=== PATIENT | female | born 1955 | race Caucasian/White ===

== ENCOUNTER 2016-10-10 13:24 | Outpatient (CLI) | payer MEDICAID | END 2016-10-10 13:25 | disposition home or self-care (01) | DX: E78.5 Hyperlipidemia, unspecified (principal); Z79.899 Other long term (current) drug therapy; E55.9 Vitamin D deficiency, unspecified ==

== ENCOUNTER 2017-04-23 13:47 | Outpatient (CLI) | payer MEDICAID ==
--- NOTE | 2017-04-24 13:21 | Mammography Report ---
DIGITAL SCREENING MAMMOGRAM: 04/23/2017 CLINICAL INDICATION: A 61-year-old with history of benign biopsy, for screening. COMPARISON: 04/2014, 12/2012, 12/2011, 10/2009. TECHNIQUE: Routine CC and MLO projections were obtained of the breasts. FINDINGS: The breasts again demonstrate scattered fibroglandular densities bilaterally. Postbiopsy c hanges in the right breast are stable, with coarse, typically benign calcifications. No suspicious ma sses, clustered microcalcifications, or regions of architectural distortion are identified. IMPRESSION: BENIGN FINDINGS. RECOMMENDATION: ROUTINE ANNUAL SCREENING UNLESS OTHERWISE CLINICALLY INDICATED. BIRADS CATEGORY 2-BENIGN FINDINGS. STANDARD QUALIFYING STATEMENTS 1. This examination was reviewed with the aid of Computer-Aided Detection (CAD). 2. A negative or benign imaging report should not delay biopsy if clinically suspicious findings are present. Consider surgical consultation if warranted. More than 5% of cancers are not identified by i maging. 3. Dense breasts may obscure an underlying neoplasm. JOB #: [id number] EXT JOB #:[id number]
== END 2017-04-23 13:48 | disposition home or self-care (01) ==
LOC: DI.N 13:47
PROVIDERS: ATTEND Nurse Practitioner Gerontology
DX: Z13.9 Encounter for screening, unspecified (principal)
CPT/HCPCS: 77067

== ENCOUNTER 2018-05-08 08:00 | Outpatient (CLI) | payer MEDICAID ==
[2018-05-08 18:49] LABS: BASOPHILS % (AUTO) 0.3 %; EOSINOPHILS % (AUTO) 0.3 %; HGB - HEMOGLOBIN 12.5 g/dL (12.0-16.0); LYMPHOCYTES # (AUTO) 1.7 10^3/uL (1.5-3.5); LYMPHOCYTES % (AUTO) 17.5 %; MEAN CORPUSCULAR HEMOGLOBIN 30.3 pg (27.0-31.0); MEAN CORPUSCULAR HGB CONC 33.3 g/dL (32.0-36.0); MEAN CORPUSCULAR VOLUME 90.8 fL (81.0-99.0); MONOCYTES # (AUTO) 0.6 10^3/uL (0.0-1.0); MONOCYTES % (AUTO) 5.6 %; NEUTROPHILS # (AUTO) 7.6 10^3/uL (1.5-6.6); NEUTROPHILS % (AUTO) 76.3 %; PLT - PLATELET COUNT 200 10^3/uL (130-450); RED BLOOD COUNT 4.12 10^6/uL (4.20-5.40); RED CELL DISTRIBUTION WIDTH 14.8 % (12.0-15.0)
[2018-05-08 19:14] LABS: ALBUMIN 4.2 g/dL (3.2-5.5); ALBUMIN/GLOBULIN RATIO 1.3 (1.0-2.2); ALKALINE PHOSPHATASE 73 IU/L (42-121); ALT ALANINE AMINOTRANSFERASE 17 IU/L (10-60); AST ASPARTATE AMINOTRANSFERASE 20 IU/L (10-42); BILIRUBIN,TOTAL 0.8 mg/dL (0.2-1.0); BUN - BLOOD UREA NITROGEN 14 mg/dL (6-20); CALCIUM 9.1 mg/dL (8.5-10.3); CARBON DIOXIDE - CO2 25 mmol/L (21-32); CHLORIDE 108 mmol/L (101-111); CHOL/HDL RATIO 2.8 (<4.4); CHOLESTEROL 140 mg/dL; CREATININE 0.5 mg/dL (0.4-1.0); GFR - MDRD 126 (>89); GLUCOSE 88 mg/dL (70-100); HDL CHOLESTEROL 50 mg/dL; LDL CHOLESTEROL,CALCULATED 74 mg/dL; LDL/HDL RATIO 1.5 (<4.4); SODIUM 141 mmol/L (135-145); TOTAL PROTEIN 7.4 g/dL (6.7-8.2); VLDL CHOLESTEROL 16 mg/dL
== END 2018-05-08 08:01 | disposition home or self-care (01) ==
LOC: LAB.N 08:00
PROVIDERS: ATTEND Nurse Practitioner Gerontology
DX: Z79.899 Other long term (current) drug therapy (principal)
CPT/HCPCS: 36415; 80053; 80061; 83721; 85025

== ENCOUNTER 2018-05-08 13:09 | Emergency (ER) | payer MEDICAID ==
--- NOTE | 2018-05-08 15:05 | XRAY Report ---
Reason: Trauma Procedure Date: 05/08/2018 Accession Number: [id number] / [id number] Procedure: XR - Forearm LT CPT Code: FULL RESULT: EXAM: LEFT FOREARM AND ELBOW RADIOGRAPHY EXAM DATE: 05/08/2018 02:48 PM. CLINICAL HISTORY: Left forearm pain. COMPARISON: ELBOW 3 VIEW BILAT 05/08/2018 1:48 PM. TECHNIQUE: 2 views left forearm and 3 views left elbow. FINDINGS: Bones: There is minimally displaced comminuted intra-articular fracture involving the radial head. The remainder osseous structures are intact. Joints: Normal. No effusions or subluxations in the visualized wrist or elbow joints. Soft Tissues: Normal. No soft tissue swelling. IMPRESSION: Comminuted minimally displaced intra-articular fracture involving the radial head. RADIA
--- NOTE | 2018-05-08 15:05 | XRAY Report ---
Reason: LEFT ELBOW PAIN, FALL Procedure Date: 05/08/2018 Accession Number: [id number] / [id number] Procedure: XR - Elbow 3 View LT CPT Code: FULL RESULT: EXAM: LEFT FOREARM AND ELBOW RADIOGRAPHY EXAM DATE: 05/08/2018 02:48 PM. CLINICAL HISTORY: Left forearm pain. COMPARISON: ELBOW 3 VIEW BILAT 05/08/2018 1:48 PM. TECHNIQUE: 2 views left forearm and 3 views left elbow. FINDINGS: Bones: There is minimally displaced comminuted intra-articular fracture involving the radial head. The remainder osseous structures are intact. Joints: Normal. No effusions or subluxations in the visualized wrist or elbow joints. Soft Tissues: Normal. No soft tissue swelling. IMPRESSION: Comminuted minimally displaced intra-articular fracture involving the radial head. RADIA
--- NOTE | 2018-05-08 15:06 | XRAY Report ---
Reason: Trauma Procedure Date: 05/08/2018 Accession Number: [id number] / [id number] Procedure: XR - Wrist 4 View LT CPT Code: FULL RESULT: EXAM: LEFT WRIST RADIOGRAPHY EXAM DATE: 05/08/2018 02:48 PM. CLINICAL HISTORY: Trauma. COMPARISON: XR WRIST COMPLETE 3 VIEWS 09/03/2010 4:29 PM. TECHNIQUE: 3 views. FINDINGS: Bones: Bones are osteopenic. No fractures or bone lesions. Joints: Normal. No subluxations. Soft Tissues: Normal. No soft tissue swelling. IMPRESSION: No acute findings. RADIA
[2018-05-08] MEDS ORDERED: HYDROcod/ACETAM 5/325 MG TABLET PO STA (15:36)
--- NOTE | 2018-05-08 15:51 | ED Physician Documentation ---
PD HPI UPPER EXT INJURY - Stated complaint Stated Complaint: GLF/ARM INJURY - Chief complaint Chief Complaint: Ext Problem - History obtained from History obtained from: Patient, Friend - History of Present Illness Location: Left, Arm, Elbow, Forearm Type of injury: Fall, Blunt / blow Where injury occurred: Home Timing - onset: Today Severity Comments: moderate Improved by: Immobilization Worsened by: Moving Associated symptoms: No: Weakness, Numbness, Tingling, Swelling Similar symptoms before: Has not had sx before Recently seen: Not recently seen - Additonal information Additional information: 62-year-old female fell striking her left elbow. No injury to her head, neck, torso or lower extremities. Review of Systems Constitutional: denies: Fever, Chills Ears: denies: Ear pain Nose: denies: Congestion Throat: denies: Sore throat Cardiac: denies: Chest pain / pressure GI: denies: Abdominal Pain Skin: denies: Laceration (s) Musculoskeletal: reports: Extremity pain. 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 11/04/14 Ondansetron HCl [Zofran] 4 mg PO Q6H PRN #20 tablet 11/04/14 Oxycodone HCl/Acetaminophen 1 - 2 each PO Q6H PRN #30 tablet 11/04/14 [Percocet 5-325 mg Tablet] Tamsulosin [Flomax] 0.4 mg PO DAILY #14 capsule 11/04/14 HYDROcod/ACETAM 5/325 [[employer] 5/325] 1 each PO Q6H PRN #15 tablet 05/08/18 - Allergies Allergies/Adverse Reactions: Allergies Allergy/AdvReac Type Severity Reaction Status Date / Time Penicillins Allergy Intermediate Edema Verified 02/10/14 20:04 - Social History Does the pt smoke?: No Smoking Status: Never smoker Does the pt drink ETOH?: No Does the pt have substance abuse?: No - Immunizations Immunizations are current?: Yes - POLST Patient has POLST: Yes PD ED PE NORMAL - General General: Alert and oriented X 3 - HEENT HEENT: Atraumatic, PERRL, EOMI - Neck Neck: No bony TTP - Cardiac Cardiac: Other (No chest wall tenderness) - Abdomen Abdomen: Non tender - Back Back: No spinal TTP - Extremities Extremities: Other (The patient has tenderness to palpation of the left elbow, forearm and wrist. The patient has no tenderness in the shoulder or hand. The patient has normal sensation light touch and normal radial pulse. There is no obvious deformity or significant ecchymosis or laceration. The patient has no tenderness in her right upper extremity or lower extremities.). No: No tenderness to palpate - Neuro Neuro: Alert and oriented X 3, Normal speech - Psych Psych: Normal affect Results - Vitals Vitals: Vital Signs - 24 hr 05/08/18 13:13 Temperature 36.8 C Heart Rate 74 Respiratory 18 Rate Blood Pressure 149/76 H O2 Saturation 100 Oxygen O2 Source Room air - Rads (name of study) XR elbow/forearm/wrist Radiology: Final report received (IMPRESSION: Comminuted minimally displaced intra-articular fracture involving the radial head. ) Procedures - Splint (location) Upper extremity left Splint applied by: Tech Type of splint: Posterior Other: Patient tolerated well, Neurovascular intact PD MEDICAL DECISION MAKING - ED course ED course: The case was discussed with the on-call orthopedic surgeon who reviewed the images and agrees with the plan for a posterior splint and agrees to follow the patient up in clinic for definitive management. The findings and plan were discussed the patient who understands and agrees to the plan.I discussed warning signs and recommended returning to the emergency department immediately for worsening or any concerns. - Sepsis Event Vital Signs: Vital Signs - 24 hr 05/08/18 13:13 Temperature 36.8 C Heart Rate 74 Respiratory 18 Rate Blood Pressure 149/76 H O2 Saturation 100 Oxygen O2 Source Room air Departure - Departure Disposition: 01 Home, Self Care Clinical Impression: Radial head fracture Qualifiers: Encounter type: initial encounter Fracture type: closed Fracture alignment: displaced Laterality: unspecified laterality Qualified Code(s): S52.123A - Displaced fracture of head of unspecified radius, initial encounter for closed fracture Condition: Good Instructions: ED Fx Upper Extr Ch Follow-Up: Beny Alfaro MD [Provider Admit Priv/Credential] - (Call tomorrow to schedule a follow-up appointment) Prescriptions: HYDROcod/ACETAM 5/325 [[employer] 5/325] 1 each PO Q6H PRN #15 tablet PRN Reason: Pain Comments: Please return to the emergency department immediately for worsening symptoms or any concerns
[2018-05-08 16:38] VITALS: BP 145/85
== END 2018-05-08 16:30 | disposition home or self-care (01) ==
LOC: ED 13:09
DX: S52.122A Displaced fracture of head of left radius, initial encounter for closed fracture (principal); W19.XXXA Unspecified fall, initial encounter; I10 Essential (primary) hypertension; Z79.899 Other long term (current) drug therapy
CPT/HCPCS: 29105; 36415; 73080; 73090; 73110; 80053; 80061; 85025; 99283; A9270

== ENCOUNTER 2018-06-13 18:09 | Outpatient (CLI) | payer MEDICAID | END 2018-06-13 18:10 | disposition critical access hospital (66) | LOC: EMS 18:09 | PROVIDERS: ATTEND Surgery | DX: K08.89 Other specified disorders of teeth and supporting structures (principal); R03.0 Elevated blood-pressure reading, without diagnosis of hypertension | CPT/HCPCS: A0425; A0429; A0999 ==

== ENCOUNTER 2018-06-13 18:33 | Emergency (ER) | payer MEDICAID ==
[2018-06-13 18:41] VITALS: BP 191/90
[2018-06-13] MEDS ORDERED: CLINDAMYCIN 150 MG CAPSULE PO STA (18:41)
[2018-06-13] MEDS ORDERED: HYDROcod/ACETAM 5/325 MG TABLET PO STA (18:41)
--- NOTE | 2018-06-13 18:44 | ED Physician Documentation ---
History of Present Illness - Stated complaint Stated Complaint: TOOTHACHE - Chief complaint Chief Complaint: Heent - History obtained from History obtained from: Patient - History of Present Illness Timing: How many weeks ago (1) Pain level max: 8 Pain level now: 8 Improved by: nothing Worsened by: eating, chewing - Additonal information Additional information: R upper tooth pain x 1 week. No fevers. no trismus. No facial swelling or redness. 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 11/04/14 Ondansetron HCl [Zofran] 4 mg PO Q6H PRN #20 tablet 11/04/14 Oxycodone HCl/Acetaminophen 1 - 2 each PO Q6H PRN #30 tablet 11/04/14 [Percocet 5-325 mg Tablet] Tamsulosin [Flomax] 0.4 mg PO DAILY #14 capsule 11/04/14 HYDROcod/ACETAM 5/325 [[place] 5/325] 1 each PO Q6H PRN #15 tablet 05/08/18 Clindamycin HCl [Clindamycin 300MG 300 mg PO Q6H #28 capsule 06/13/18 CAP] Hydrocodone/Acetaminophen 1 each PO Q6H PRN #7 tablet 06/13/18 [Hydrocodon-Acetaminophen 5-325] - Allergies Allergies/Adverse Reactions: Allergies Allergy/AdvReac Type Severity Reaction Status Date / Time Penicillins Allergy Intermediate Edema Verified 02/10/14 20:04 - Social History Does the pt smoke?: No Smoking Status: Never smoker Does the pt drink ETOH?: No Does the pt have substance abuse?: No - Immunizations Immunizations are current?: Yes - POLST Patient has POLST: No PD ED PE NORMAL - Vitals Vital signs reviewed: Yes - General General: Alert and oriented X 3, No acute distress - HEENT HEENT: Moist mucous membranes, Other (Diffuse dental decay along the right upper mandible. No drainable abscess. No gingival swelling. No facial cellulitis) - Neck Neck: Supple, no meningeal sign, No adenopathy - Cardiac Cardiac: RRR - Respiratory Respiratory: No respiratory distress, Clear bilaterally - Derm Derm: Warm and dry - Neuro Neuro: Alert and oriented X 3 Results - Vitals Vitals: Vital Signs - 24 hr 06/13/18 18:35 Temperature 36.5 C Heart Rate 71 Respiratory 18 Rate Blood Pressure 191/90 H O2 Saturation 100 Oxygen O2 Source Room air PD MEDICAL DECISION MAKING - ED course Complexity details: considered differential, d/w patient ED course: Patient is a 62-year-old female with dental caries and dental pain. Will place on antibiotics for home and follow-up closely with a dentist on Saturday. She is well-appearing, nontoxic. Afebrile. No facial cellulitis. No drainable abscess. Patient counseled regarding signs and symptoms for which I believe and urgent re-evaluation would be necessary. Patient with good understanding of and agreement to plan and is comfortable going home at this time This document was made in part using voice recognition software. While efforts are made to proofread this document, sound alike and grammatical errors may occur. Departure - Departure Disposition: 01 Home, Self Care Clinical Impression: Pain, dental, Dental caries Condition: Good Instructions: ED Cavity Dental Prescriptions: Clindamycin HCl [Clindamycin 300MG CAP] 300 mg PO Q6H #28 capsule Hydrocodone/Acetaminophen [Hydrocodon-Acetaminophen 5-325] 1 each PO Q6H PRN #7 tablet PRN Reason: pain Comments: Take all antibiotics until gone. Return if you worsen. You need to follow-up with the dentist as soon as possible next week. Do not drink alcohol or drive while on narcotic pain medicine. Note that many narcotic pain relievers also contain tylenol/acetaminophen. Please ensure that your total dose of acetaminophen from all sources does not exceed 3 grams (3000mg) per day. You may constipated on this medication, take a stool softener such as "Colace" twice a day while you are on it. Also recommend a adta-upy-wqbdsqr laxative such as senna or MiraLAX any day that you do not have a bowel movement. If you received narcotic pain medication in the emergency department, do not drive or operate machinery for the next 24 hours.
== END 2018-06-13 18:55 | disposition home or self-care (01) ==
LOC: EDUNIT# → ED 18:33
DX: K08.89 Other specified disorders of teeth and supporting structures (principal); K02.9 Dental caries, unspecified; I10 Essential (primary) hypertension
CPT/HCPCS: 99283; A9270

== ENCOUNTER 2019-01-27 08:55 | Outpatient (CLI) | payer MEDICAID ==
--- NOTE | 2019-01-27 09:55 | XRAY Report ---
Reason: WRIST JOINT PAIN,LEFT Procedure Date: 01/27/2019 Accession Number: [id number] / [id number] Procedure: XRN - Wrist 4 View LT CPT Code: FULL RESULT: EXAM: LEFT WRIST RADIOGRAPHY EXAM DATE: 01/27/2019 09:34 AM. CLINICAL HISTORY: WRIST JOINT PAIN, LEFT. COMPARISON: ELBOW 3 VIEW LT 07/17/2018 1:47 PM. TECHNIQUE: 3 views. FINDINGS: Bones: There is an acute comminuted transverse fracture at the metaphyseal-diaphyseal junction of the distal left ulnar shaft. There is no significant displacement. No other findings. Joints: Normal. No subluxations. Soft Tissues: Normal. No soft tissue swelling. IMPRESSION: Acute comminuted transverse fracture of the distal left ulnar shaft as described above. RADIA
== END 2019-01-27 08:56 | disposition home or self-care (01) ==
LOC: DI.N 08:55
PROVIDERS: ATTEND Nurse Practitioner Gerontology
DX: S52.692A Other fracture of lower end of left ulna, initial encounter for closed fracture (principal)

== ENCOUNTER 2019-03-11 10:59 | Outpatient (CLI) | payer MEDICAID ==
--- NOTE | 2019-03-12 09:00 | DEXA Report ---
Reason: OSTEOPOROSIS Procedure Date: 03/11/2019 Accession Number: [id number] / [id number] Procedure: DEX - Dexa Spine and/or Hip CPT Code: FULL RESULT: EXAM: Dexa Spine and/or Hip DATE: 03/11/2019 11:54 AM CLINICAL HISTORY: OSTEOPOROSIS TECHNIQUE: Dual energy x-ray absorptiometry (DXA) was performed on a [employer] System. Regions measured are the AP Spine, femoral neck, and if needed forearm. COMPARISON: None. In accordance with the International Society for Clinical Densitometry (ISCD) guidelines, data from previous exams may be reanalyzed using current recommendations and techniques. This is done to allow a more accurate basis for comparison with the current study. FINDINGS: The data for the lumbar spine is as follows: BMD (g/cm/cm) T-SCORE Z-SCORE REGION L1 0.926 -1.7 -0.5 L2 0.941 -2.2 -1.0 L3 1.045 -1.3 -0.1 L4 0.993 -1.7 -0.5 TOTAL 0.979 -1.7 -0.5 NOTE: All evaluable vertebrae are used for classification The data for the hip is as follows: BMD (g/cm/cm) T-SCORE Z-SCORE REGION Neck 0.762 -2.0 -0.8 TOTAL 0.800 -1.6 -0.7 NOTE: The femoral neck or total proximal femur, whichever is lowest, is used for classification. IMPRESSION: THE WHO CLASSIFICATION BASED ON THE INTERNATIONAL REFERENCE STANDARD IS OSTEOPENIA. THE FRACTURE RISK IS INCREASED. RECOMMENDATION: Patients with diagnosis of osteoporosis or osteopenia should have regular bone mineral density assessment. For those eligible for Medicare, routine testing is allowed once every 2 years. Testing frequency can be increased for patients who have rapidly progressing disease or for those who are receiving medical therapy to restore bone mass. COMMENT: World Health Organization (WHO) definitions for osteoporosis and osteopenia: NORMAL BMD: T-score at -1.0 or higher, fracture risk is low OSTEOPENIA BMD: T-score between -1.0 and -2.5, fracture risk is increased. OSTEOPOROSIS BMD: T-score at -2.5 or lower, fracture risk is high. National Osteoporosis Foundation recommends: 1. Obtain adequate dietary calcium (at least 1200 mg per day) and vitamin D (400-800 international units per day). 2. Participate, as appropriate, in regular weightbearing and muscle-strengthening exercise. 3. Avoid tobacco use and reduce alcohol and caffeine intake. 4. For more detailed information see the website at www.NOF.org.
== END 2019-03-11 11:00 | disposition home or self-care (01) ==
LOC: DI 10:59
PROVIDERS: ATTEND Nurse Practitioner Gerontology
DX: M85.89 Other specified disorders of bone density and structure, multiple sites (principal)
CPT/HCPCS: 77080

== ENCOUNTER 2019-04-05 11:50 | Emergency (ER) | payer MEDICAID ==
[2019-04-05 12:23] LABS: BASOPHILS % (AUTO) 0.3 %; EOSINOPHILS % (AUTO) 0.3 %; HGB - HEMOGLOBIN 13.3 g/dL (12.0-16.0); LYMPHOCYTES % (AUTO) 18.5 %; MEAN CORPUSCULAR HEMOGLOBIN 29.9 pg (27.0-31.0); MEAN CORPUSCULAR HGB CONC 33.3 g/dL (32.0-36.0); MEAN CORPUSCULAR VOLUME 89.7 fL (81.0-99.0); MEAN PLATELET VOLUME 10.1 fL (7.9-10.8); MONOCYTES # (AUTO) 0.4 10^3/uL (0.0-1.0); NEUTROPHILS # (AUTO) 8.1 10^3/uL (1.5-6.6); NEUTROPHILS % (AUTO) 76.5 %; PLT - PLATELET COUNT 247 10^3/uL (130-450); RED BLOOD COUNT 4.45 10^6/uL (4.20-5.40); WHITE BLOOD COUNT 10.6 x10^3/uL (4.8-10.8)
[2019-04-05 12:36] LABS: ALBUMIN 4.2 g/dL (3.2-5.5); ALBUMIN/GLOBULIN RATIO 1.2 (1.0-2.2); BILIRUBIN,TOTAL 0.8 mg/dL (0.2-1.0); CALCIUM 9.3 mg/dL (8.5-10.3); CREATININE 0.5 mg/dL (0.4-1.0); TOTAL PROTEIN 7.7 g/dL (6.7-8.2)
--- NOTE | 2019-04-05 12:37 | ED Physician Documentation ---
PD HPI NVD - Stated complaint Stated Complaint: VOMITING - Chief complaint Chief Complaint: Abd Pain - History obtained from History obtained from: Patient - History of Present Illness Timing - onset: How many days ago (3) Timing - duration: Days (3) Timing - details: Gradual onset (She had onset of nausea with repetitive vomiting starting 3 days ago. She had one bowel movement yesterday that was normal. No diarrhea. She has not noticed any hematemesis. She has had a feeling a bit abdominal fullness with intermittent crampy pains. No persistent localized pain. She states she had similar episode with a gallbladder attack in the past. She does have history of an ulcer as well.) Associated symptoms: Abdominal pain (She is having intermittent pain in the right to mid abdomen.). No: Fever Contributing factors: No: Sick contact, Bad food, Travel, Recent antibiotics Improved by: No: Vomiting Worsened by: Eating Similar symptoms before: Diagnosis (gallbladder spasm without infection) Recently seen: Not recently seen Review of Systems Constitutional: denies: Fever, Chills Nose: denies: Rhinorrhea / runny nose, Congestion Throat: denies: Sore throat Respiratory: denies: Cough GI: reports: Abdominal Pain, Nausea, Vomiting. denies: Diarrhea, Hematemesis, Bloody / black stool : denies: Dysuria, Frequency Musculoskeletal: denies: Neck pain, Back pain Neurologic: denies: Headache Endocrine: denies: Weight loss, Easy bruising / bleeding Immunocompromised: denies: Immunocompromised PD PAST MEDICAL HISTORY - Past Medical History Past Medical History: Yes Cardiovascular: Hypertension Respiratory: None Endocrine/Autoimmune: None GI: GERD : Kidney stones HEENT: None Psych: Depression Musculoskeletal: Osteoarthritis, Chronic back pain Derm: None - Past Surgical History Past Surgical History: Yes Ortho: Rotator cuff repair, 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 11/04/14 Ondansetron HCl [Zofran] 4 mg PO Q6H PRN #20 tablet 11/04/14 Oxycodone HCl/Acetaminophen 1 - 2 each PO Q6H PRN #30 tablet 11/04/14 [Percocet 5-325 mg Tablet] Tamsulosin [Flomax] 0.4 mg PO DAILY #14 capsule 11/04/14 HYDROcod/ACETAM 5/325 [[place] 5/325] 1 each PO Q6H PRN #15 tablet 05/08/18 Hydrocodone/Acetaminophen 1 each PO Q6H PRN #7 tablet 06/13/18 [Hydrocodon-Acetaminophen 5-325] Famotidine 20 mg PO DAILY #30 tablet 04/05/19 Hydrocodone/Acetaminophen [[place] 1 each PO Q6H PRN #12 tablet 04/05/19 5-325 Tablet] Ondansetron Odt [Zofran] 4 mg TL Q6H PRN #10 tablet 04/05/19 - Allergies Allergies/Adverse Reactions: Allergies Allergy/AdvReac Type Severity Reaction Status Date / Time Penicillins Allergy Intermediate Edema Verified 06/13/18 18:53 - Social History Does the pt smoke?: No Smoking Status: Never smoker Does the pt drink ETOH?: No Does the pt have substance abuse?: No - Immunizations Immunizations are current?: Yes - POLST Patient has POLST: No PD ED PE NORMAL - Vitals Vital signs reviewed: Yes - General General: Alert and oriented X 3, Well developed/nourished, Other (Appears uncomfortable and nauseated and holding an emesis bag.) - HEENT HEENT: PERRL (nonicteric), Pharynx benign - Neck Neck: Supple, no meningeal sign, No adenopathy - Cardiac Cardiac: RRR, No murmur - Respiratory Respiratory: Clear bilaterally - Abdomen Abdomen: Soft, No organomegaly, Other (There is mild distention generally. She is tender in the mid abdomen and towards the right side both upper and mid. She does not have a Escobar sign per se. There is some mild percussion tenderness generally.). No: Normal bowel sounds (increased diffusely) - Female Female : Deferred - Rectal Rectal: Deferred - Derm Derm: Normal color, Warm and dry - Extremities Extremities: No edema, No calf tenderness / cord - Neuro Neuro: Alert and oriented X 3, No motor deficit, Normal speech Results - Vitals Vitals: Vital Signs - 24 hr 04/05/19 12:04 Temperature 36.8 C Heart Rate 85 Respiratory 18 Rate Blood Pressure 144/85 H O2 Saturation 99 Oxygen O2 Source Room air - Labs Labs: Laboratory Tests 04/05/19 04/05/19 04/05/19 12:20 12:20 13:06 WBC 10.6 RBC 4.45 Hgb 13.3 Hct 39.9 MCV 89.7 MCH 29.9 MCHC 33.3 RDW 14.0 Plt Count 247 MPV 10.1 Neut # (Auto) 8.1 H Lymph # (Auto) 2.0 [place] # (Auto) 0.4 Eos # (Auto) 0.0 Baso # (Auto) 0.0 Absolute Nucleated RBC 0.00 Nucleated RBC % 0.0 Sodium 140 Potassium 3.2 L Chloride 107 Carbon Dioxide 19 L Anion Gap 14.0 H BUN 13 Creatinine 0.5 Estimated GFR (MDRD) 125 Glucose 155 H Calcium 9.3 Total Bilirubin 0.8 AST 21 ALT 19 Alkaline Phosphatase 76 Total Protein 7.7 Albumin 4.2 Globulin 3.5 Albumin/Globulin Ratio 1.2 Lipase 29 Urine Color YELLOW Urine Clarity CLEAR Urine pH 7.5 Ur Specific [place] 1.015 Urine Protein NEGATIVE Urine Glucose (UA) NEGATIVE Urine Ketones NEGATIVE Urine Occult Blood TRACE-INTA Urine Nitrite NEGATIVE Urine Bilirubin NEGATIVE Urine Urobilinogen 0.2 (NORMAL) Ur Leukocyte Esterase NEGATIVE Ur Microscopic Review NOT INDICATED Urine Culture Comments NOT INDICATED - Rads (name of study) abd CT Radiology: Prelim report reviewed (gallstones without cholecystitis, diverticula without diverticulitis. No acute process. ), See rad report PD MEDICAL DECISION MAKING - ED course Complexity details: re-evaluated patient (Feeling much better with fluids and antiemetics. She is able to eat and drink crackers and water at this point. She feels able to go home.), considered differential (Gallbladder attack versus viral illness versus exacerbation of ulcer or gastritis. Consider diverticulitis or such as well or bowel obstruction.), d/w patient Departure - Departure Disposition: 01 Home, Self Care Clinical Impression: Dehydration, Gallbladder attack Nausea and vomiting Qualifiers: Vomiting type: unspecified Vomiting Intractability: intractable Qualified Code(s): R11.2 - Nausea with vomiting, unspecified Gastritis Qualifiers: Gastritis type: unspecified gastritis Chronicity: acute Gastritis bleeding: without bleeding Qualified Code(s): K29.00 - Acute gastritis without bleeding Condition: Stable Record reviewed to determine appropriate education?: Yes Instructions: ED Nausea Vomiting Follow-Up: Terese Nolen ARNP [Primary Care Provider] - Prescriptions: Famotidine 20 mg PO DAILY #30 tablet Hydrocodone/Acetaminophen [[place] 5-325 Tablet] 1 each PO Q6H PRN #12 tablet PRN Reason: Pain Ondansetron Odt [Zofran] 4 mg TL Q6H PRN #10 tablet PRN Reason: Nausea / Vomiting Comments: This may have been a "gallbladder attack" with spasming of the gallbladder. There is no signs of infection to it at this point. You could also have been a exacerbation of gastritis or ulcer symptoms. Could be a combination of both. At this point I would have you take some acid reducing medicine such as famotidine daily for 2 to 3 weeks. Use ondansetron if needed for nausea. Use Tylenol or hydrocodone if needed for pains. [place] food for the next few days. Progress as able. Stay well-hydrated. Recheck if not improved completely over the next few days and return if worse again.
[2019-04-05] MEDS ORDERED: ONDANSETRON 4 MG/2 ML VIAL IVP STA (12:50)
[2019-04-05] MEDS ORDERED: SODIUM CHLORIDE 0.9% 1,000 ML IV ONE ×2 (12:50→12:54)
[2019-04-05] MEDS ORDERED: FAMOTIDINE 20 MG/2 ML VIAL IVP STA (12:53)
[2019-04-05] MEDS ORDERED: MORPHINE 10 MG/ML VIAL IVP STA (12:53)
[2019-04-05 13:15] LABS: BILIRUBIN,URINE NEGATIVE (NEGATIVE); GLUCOSE, URINE (UA) NEGATIVE (NEGATIVE); KETONES,URINE (UA) NEGATIVE (NEGATIVE); LEUKOCYTE ESTERASE, URINE NEGATIVE (NEGATIVE); NITRITE,URINE NEGATIVE (NEGATIVE); OCCULT BLOOD,URINE TRACE-INTA (NEGATIVE); PH,URINE 7.5 PH (5.0-7.5); PROTEIN,URINE NEGATIVE (NEGATIVE); UROBILINOGEN,URINE 0.2 (NORMAL) E.U./dL (NORMAL)
[2019-04-05 13:18] LABS: CLARITY,URINE CLEAR (CLEAR)
[2019-04-05] MEDS ORDERED: IOVERSOL 320 100 ML VIAL IVP ONE ×2 (13:33→13:42)
[2019-04-05] MEDS ORDERED: POTASSIUM CHLOR 10 MEQ/100 ML 10 MEQ/100 ML BAG IV ONE (13:39)
--- NOTE | 2019-04-05 14:08 | CT Report ---
Reason: abd pain and vomiting 3 days; mid to right abd natasha Procedure Date: 04/05/2019 Accession Number: [id number] / [id number] Procedure: CT - Abdomen/Pelvis W CPT Code: FULL RESULT: EXAM: CT ABDOMEN AND PELVIS EXAM DATE: 04/05/2019 01:43 PM. CLINICAL HISTORY: Abdominal pain and vomiting. COMPARISONS: ABDOMEN/PELVIS W/O 11/02/2014 6:40 AM. TECHNIQUE: Routine helical CT imaging was performed through the abdomen and pelvis. IV contrast: 90 mL Optiray 320. Enteric contrast: No. Reconstructions: Coronal and sagittal. In accordance with CT protocol optimization, one or more of the following dose reduction techniques were utilized for this exam: automated exposure control, adjustment of mA and/or KV based on patient size, or use of iterative reconstructive technique. FINDINGS: Lung Bases: Unremarkable. Liver: Probable fatty change. No masses. Gallbladder/Bile Ducts: Calcified gallstones present. No biliary dilation. Spleen: Normal. Pancreas: Normal. Adrenal Glands: Normal. Kidneys: Normal. No masses or hydronephrosis. Peritoneal Cavity/Bowel: There is minimal predominantly sigmoid diverticulosis without evidence of diverticulitis. There is no obstruction or ileus. No free fluid or free air. The appendix is not visualized, however, no inflammatory changes are seen in the right lower quadrant region. Pelvic Organs: Uterine calcification related to degenerative fibroid is again seen. The bladder and visualized pelvic organs are otherwise within normal limits. Vasculature: No aneurysms or other significant abnormality. Bones: Age indeterminant 2 column burst fracture is seen at T12 with 4 mm retropulsion of the superior endplate causing mild spinal canal stenosis at the T11-T12 level. Other: None. IMPRESSION: 1. No acute intra-abdominal abnormality demonstrated. No obstruction or ileus. 2. Cholelithiasis. No biliary dilation. 3. Minor colonic diverticulosis without diverticulitis. 4. Age indeterminant 2 column burst fracture at T12 causing mild retropulsion and spinal canal stenosis. Finding is new compared with 11/02/2014 CT. RADIA
[2019-04-05 15:51] VITALS: BP 133/80
== END 2019-04-05 15:53 | disposition home or self-care (01) ==
LOC: ED 11:50
DX: E86.0 Dehydration (principal); K80.00 Calculus of gallbladder with acute cholecystitis without obstruction; K29.00 Acute gastritis without bleeding; I10 Essential (primary) hypertension
CPT/HCPCS: 36415; 74177; 80053; 81003; 83690; 85025; 93005; 96365; 96375; 99284; 99285; Q9967; 81001; 87086

== ENCOUNTER 2019-04-30 10:42 | Outpatient (CLI) | payer MEDICAID ==
[2019-04-30 12:27] LABS: BASOPHILS % (AUTO) 0.5 %; EOSINOPHILS # (AUTO) 0.2 10^3/uL (0.0-0.7); EOSINOPHILS % (AUTO) 2.2 %; LYMPHOCYTES % (AUTO) 23.6 %; MEAN CORPUSCULAR HEMOGLOBIN 29.1 pg (27.0-31.0); MEAN CORPUSCULAR HGB CONC 31.9 g/dL (32.0-36.0); MEAN CORPUSCULAR VOLUME 91.3 fL (81.0-99.0); MEAN PLATELET VOLUME 10.4 fL (7.9-10.8); MONOCYTES # (AUTO) 0.5 10^3/uL (0.0-1.0); MONOCYTES % (AUTO) 5.4 %; NEUTROPHILS # (AUTO) 5.7 10^3/uL (1.5-6.6); NEUTROPHILS % (AUTO) 67.9 %; PLT - PLATELET COUNT 211 10^3/uL (130-450); RED BLOOD COUNT 4.12 10^6/uL (4.20-5.40); RED CELL DISTRIBUTION WIDTH 14.4 % (12.0-15.0); WHITE BLOOD COUNT 8.4 x10^3/uL (4.8-10.8)
[2019-04-30 12:40] LABS: ALBUMIN 4.1 g/dL (3.2-5.5); ALBUMIN/GLOBULIN RATIO 1.4 (1.0-2.2); BILIRUBIN,TOTAL 0.9 mg/dL (0.2-1.0); CALCIUM 9.1 mg/dL (8.5-10.3); CREATININE 0.5 mg/dL (0.4-1.0); TOTAL PROTEIN 7.1 g/dL (6.7-8.2)
== END 2019-04-30 23:59 | disposition home or self-care (01) ==
LOC: LAB.N 10:42
PROVIDERS: ATTEND Nurse Practitioner Gerontology
DX: Z79.899 Other long term (current) drug therapy (principal); E78.5 Hyperlipidemia, unspecified
CPT/HCPCS: 36415; 80053; 84443; 85025

== ENCOUNTER 2020-01-01 15:41 | Outpatient (CLI) | payer MEDICAID ==
--- NOTE | 2020-01-02 18:45 | XRAY Report ---
Reason: LEFT HIP PAIN Procedure Date: 01/01/2020 Accession Number: [id number] / [id number] Procedure: WCP - Hip 1 View LT CPT Code: Final Report FULL RESULT: EXAM: LEFT HIP RADIOGRAPHY EXAM DATE: 01/01/2020 03:41 PM. CLINICAL HISTORY: LEFT HIP PAIN. COMPARISON: 11/09/2015 11:16 AM. TECHNIQUE: 2 views. FINDINGS: Bones: Normal. No fractures or bone lesion. Joints: Moderate degenerative changes are seen at bilateral hip joints with periarticular sclerosis and loss of joint space. No acute osseous or articular abnormality. Soft Tissues: Calcified soft tissue in the pelvic region is most consistent with a fibroid. IMPRESSION: Moderate degenerative changes of bilateral hip joints. No acute osseous or articular abnormality. RAD[facility]
== END 2020-01-01 23:59 | disposition home or self-care (01) ==
LOC: DI.WCP 15:41
PROVIDERS: ATTEND Family Medicine
DX: M16.0 Bilateral primary osteoarthritis of hip (principal)

== ENCOUNTER 2020-01-07 12:07 | Outpatient (CLI) | payer MEDICAID ==
--- NOTE | 2020-01-08 00:26 | XRAY Report ---
Reason: BACK PAIN,LUMBAR WITH RADICULOPATHY Procedure Date: 01/07/2020 Accession Number: [id number] Procedure: XR - Lumbar Spine Complete CPT Code: Final Report FULL RESULT: EXAM: LUMBOSACRAL SPINE RADIOGRAPHY EXAM DATE: 01/07/2020 12:33 PM. CLINICAL HISTORY: BACK PAIN, LUMBAR WITH RADICULOPATHY. COMPARISONS: None. TECHNIQUE: 4 views. FINDINGS: Alignment: Dextroscoliosis. Bones: Five pww-frq-chxxipt lumbar vertebral bodies are present. No fractures or bone lesions. Disks: Moderate degenerative disk disease. Facets: Moderate facet arthropathy. Sacroiliac Joints: Unremarkable. Soft Tissues: Normal. The visualized bowel gas pattern is normal. IMPRESSION: Degenerative disk and facet disease, with degenerative dextroscoliosis. No evidence of acute fracture. [facility]
== END 2020-01-07 12:08 | disposition home or self-care (01) ==
LOC: DI 12:07
PROVIDERS: ATTEND Family Medicine
DX: M51.36 Other intervertebral disc degeneration, lumbar region (principal); M47.816 Spondylosis without myelopathy or radiculopathy, lumbar region; M41.56 Other secondary scoliosis, lumbar region
CPT/HCPCS: 72110

== ENCOUNTER 2020-04-20 11:58 | Outpatient (CLI) | payer MEDICAID ==
--- NOTE | 2020-04-20 12:01 | XRAY Report ---
PROCEDURE: Knee 2 View RT INDICATIONS: RIGHT KNEE JOINT PAIN TECHNIQUE: 2 views of the right knee were acquired. COMPARISON: None. FINDINGS: Bones: No acute fractures or dislocations. No suspicious bony lesions. A small enthesophyte is see n at the distal quadriceps tendon insertion. Soft tissues: No joint effusion. No suspicious soft tissue calcifications. IMPRESSION: No acute osseous abnormality. If symptoms persist, further evaluation with MRI may be ob tained. Reviewed by: Villa Sainz MD on 04/20/2020 12:00 PM PDT Approved by: Villa Sainz MD on 04/20/2020 12:00 PM PDT Station ID: [id number]
== END 2020-04-20 23:59 | disposition home or self-care (01) ==
LOC: DI.WCP 11:58
PROVIDERS: ATTEND Family Medicine
DX: M25.561 Pain in right knee (principal)

== ENCOUNTER 2020-07-04 13:56 | Outpatient (CLI) | payer MEDICAID ==
[2020-07-04 17:41] LABS: BASOPHILS % (AUTO) 0.4 %; EOSINOPHILS # (AUTO) 0.1 10^3/uL (0.0-0.7); EOSINOPHILS % (AUTO) 0.5 %; HGB - HEMOGLOBIN 12.9 g/dL (12.0-16.0); LYMPHOCYTES # (AUTO) 2.3 10^3/uL (1.5-3.5); MEAN CORPUSCULAR HGB CONC 31.2 g/dL (32.0-36.0); MEAN CORPUSCULAR VOLUME 92.8 fL (81.0-99.0); MEAN PLATELET VOLUME 10.8 fL (7.9-10.8); MONOCYTES # (AUTO) 0.8 10^3/uL (0.0-1.0); MONOCYTES % (AUTO) 7.8 %; NEUTROPHILS # (AUTO) 6.9 10^3/uL (1.5-6.6); PLT - PLATELET COUNT 247 10^3/uL (130-450); RED BLOOD COUNT 4.45 10^6/uL (4.20-5.40); RED CELL DISTRIBUTION WIDTH 13.7 % (12.0-15.0); WHITE BLOOD COUNT 10.2 x10^3/uL (4.8-10.8)
[2020-07-04 18:11] LABS: ALBUMIN 4.3 g/dL (3.2-5.5); ALBUMIN/GLOBULIN RATIO 1.3 (1.0-2.2); BILIRUBIN,TOTAL 0.5 mg/dL (0.2-1.0); CALCIUM 9.6 mg/dL (8.5-10.3); CREATININE 0.6 mg/dL (0.4-1.0); TOTAL PROTEIN 7.5 g/dL (6.7-8.2)
== END 2020-07-04 23:59 | disposition home or self-care (01) ==
LOC: LAB.WCP 13:56
PROVIDERS: ATTEND Physician Assistant
DX: R11.2 Nausea with vomiting, unspecified (principal)
CPT/HCPCS: 36415; 80053; 83690; 85025

== ENCOUNTER 2020-07-20 11:43 | Outpatient (CLI) | payer MEDICAID ==
--- NOTE | 2020-07-20 16:15 | Ultrasound Report ---
PROCEDURE: Abdomen Complete INDICATIONS: History of nausea and vomiting for 2 weeks, prior history of fatty infiltration within the liver and gallstones. TECHNIQUE: Real-time scanning was performed of the abdominal and retroperitoneal organs, with image documentatio n. COMPARISON: None. FINDINGS: Liver: Liver is normal in size and homogeneous in echotexture, hyperechoic consistent with hepatic s teatosis. Gallbladder: The gallbladder contains multiple large stones the largest measuring up to 1.2 x 2.0 x 2 .5 cm. However, the gallbladder wall is normal in thickness at 2 mm and no adjacent free fluid or foc al tenderness is associated. Biliary ducts: Intrahepatic bile ducts are non-dilated. Extrahepatic bile duct caliber measures 4.0 mm. Normal is 6-7 mm or less in diameter, or 10 mm or less post-cholecystectomy. Pancreas: Visualized portions of the pancreas are sonographically normal. Spleen: Spleen is normal in size and homogeneous in echotexture. Kidneys: Kidneys are normal in size and echotexture. Right kidney measures 10.0 cm long; left kidne y measures 10.2 cm long. No hydronephrosis or nephrolithiasis. No solid masses. Note is made of bi lateral renal cortical cysts measuring up to 1.8 x 1.4 x 1.6 cm on the right and 1.5 x 1.4 x 1.6 cm o n the left. Several collecting system calculi appear present but nonobstructive located on the right measuring up to 5 mm and on the left measuring up to 4 mm. Aorta: Visualized aorta is normal in caliber at less than 3 cm. The distal aorta and bifurcation are well visualized. The proximal aorta could not be seen due to overlying bowel gas. Iliacs: Proximal common iliac arteries are normal in caliber at less than 2.5 cm. IVC: Intrahepatic inferior vena cava is patent. Miscellaneous: No free abdominal fluid. IMPRESSION: Fatty infiltration within the liver without focal lesion found. No biliary distention seen. Multiple gallstones are present within the gallbladder lumen the largest of which measures up to 2.5 cm. This finding is not associated with evidence of acute cholecystitis. Several scattered cysts are seen involving the kidneys which are normal in size. Several small 4-5 mm calculi are seen at the collecting system of each kidney, nonobstructive. Reviewed by: Jayce Garay MD on 07/20/2020 4:13 PM PST Approved by: Jayce Garay MD on 07/20/2020 4:13 PM PST Station ID: [id number]
== END 2020-07-20 11:44 | disposition home or self-care (01) ==
LOC: DI 11:43
PROVIDERS: ATTEND Physician Assistant
DX: K76.0 Fatty (change of) liver, not elsewhere classified (principal); K80.20 Calculus of gallbladder without cholecystitis without obstruction; N20.0 Calculus of kidney; Q61.02 Congenital multiple renal cysts

== ENCOUNTER 2020-08-22 08:43 | Outpatient (CLI) | payer MEDICAID ==
--- NOTE | 2020-08-22 11:03 | XRAY Report ---
PROCEDURE: Hip w/Pelvis 1V RT INDICATIONS: ARTHRITIS, R HIP TECHNIQUE: AP pelvis with lateral view(s) of the bilateral hip(s). COMPARISON: None. FINDINGS: No fracture. Lumbar discogenic changes and facet arthropathy. Mild bilateral hip joint degeneration. A presumed calcified uterine fibroid, technically nonspecific IMPRESSION: Mild bilateral hip joint degeneration and lumbar spondylosis. If the patient's pain or other symptoms persist, consider further evaluation with MRI. Reviewed by: Arturo Arroyo MD on 08/22/2020 11:02 AM PST Approved by: Arturo Arroyo MD on 08/22/2020 11:02 AM PST Station ID: [id number]
== END 2020-08-22 23:59 | disposition home or self-care (01) ==
LOC: DI.N 08:43
PROVIDERS: ATTEND Physician Assistant
DX: M16.0 Bilateral primary osteoarthritis of hip (principal); M47.816 Spondylosis without myelopathy or radiculopathy, lumbar region

== ENCOUNTER 2020-09-02 12:55 | Outpatient (CLI) | payer MEDICAID ==
[~2020-09-02 12:55] MED LIST: ROPIVACAINE 0.5% PF 20 ML AMPULE ONE
[2020-09-02] MEDS ORDERED: BUFFERED LIDOCAINE 10 ML SYRINGE ONE (12:57)
[2020-09-02] MEDS ORDERED: TRIAMCINOLONE 40 MG/ML VIAL ONE (12:58)
--- NOTE | 2020-09-02 15:13 | XRAY Report ---
PROCEDURE: Inj/Aspiration Major Joint INDICATIONS: ARTHRITIS, RT HIP CONTRAST: CONTRAST: Omnipaque 2ml FLUORO TIME: FLUORO TIME: 41 seconds and NUMBER IMAGES: 1 TECHNIQUE: The indications, alternatives, benefits, risks, and complications of the procedure were explained to the patient. Written informed consent was obtained and placed in the chart. The patient was placed in an appropriate position on the fluoroscopy table, and a site was chosen for percutaneous access un alanna fluoroscopic guidance. Local anesthetic was administered using a 1% lidocaine solution. A hypod ermic or spinal needle was then used to access the symptomatic joint. Intra-articular location of th e needle tip was confirmed by injecting a small amount of contrast, followed by steroid administratio n. The needle was then withdrawn, and a bandage applied to the puncture site. FINDINGS: Joint injected: Right hip joint. Medications injected: 1 mL of 40 mg/mL Kenalog and 3 cc of 0.5% Ropivacaine mixture. Complications: None. IMPRESSION: Successful fluoroscopically guided administration of steroid and anaesthetic solution into the right hip joint. Reviewed by: Arturo Arroyo MD on 09/02/2020 3:12 PM PST Approved by: Arturo Arroyo MD on 09/02/2020 3:12 PM PST Station ID: [id number]
[2020-09-02] MEDS ORDERED: BUFFERED LIDOCAINE 10 ML SYRINGE IU ONE (16:23)
[2020-09-02] MEDS ORDERED: iohexoL-240 10 ML VIAL IVP ONE (16:32)
[2020-09-02] MEDS ORDERED: TRIAMCINOLONE 40 MG/ML VIAL IM ONE (16:34)
== END 2020-09-02 12:56 | disposition home or self-care (01) ==
LOC: DI 12:55
PROVIDERS: ATTEND Physician Assistant
DX: M12.851 Other specific arthropathies, not elsewhere classified, right hip (principal)
CPT/HCPCS: 20610; Q9966

== ENCOUNTER 2021-02-22 07:56 | Day surgery (SDC) | payer MEDICAID ==
[2021-02-22] MEDS ORDERED: ceFAZolin 2 GM/50 ML 2 GM/50 ML BAG IV ONE (08:05)
[2021-02-22] MEDS ORDERED: LACTATED RINGERS 1,000 ML IV ONE ×2 (08:05→10:59)
[2021-02-22] MEDS ORDERED: ONDANSETRON 4 MG/2 ML VIAL IVP PRN ×2 (09:00→11:01)
[2021-02-22] MEDS ORDERED: HYDROmorphone 0.5 MG/0.5 ML SYRINGE IVP PRN (09:00)
[2021-02-22] MEDS ORDERED: LACTATED RINGERS 1,000 ML IV SCH (09:00)
[2021-02-22] MEDS ORDERED: fentaNYL 100 MCG/2 ML VIAL IVP PRN (09:00)
[2021-02-22] MEDS ORDERED: NALOXONE 0.4 MG/ML VIAL IVP PRN (09:00)
[2021-02-22] MEDS ORDERED: ATROPINE ABBOJECT 1 MG/10 ML SYRINGE IVP PRN (09:00)
[2021-02-22] MEDS ORDERED: ePHEDrine 50 MG/ML VIAL IVP PRN (09:00)
[2021-02-22] MEDS ORDERED: MORPHINE 2 MG/ML CARPUJECT IVP PRN (09:00)
--- NOTE | 2021-02-22 09:00 | ANESTHESIA ---
Pre-Anesthesia VS, & Labs - Diagnosis chronic cholelithiasis - Procedure laparoscopic cholecystectomy Vital Signs: Temp Pulse Resp BP Pulse Ox 36.4 C L 81 14 144/80 H 100 02/22/21 08:19 02/22/21 08:19 02/22/21 08:19 02/22/21 08:19 02/22/21 08:19 Height: 5 ft 5 in Weight (kg): 66.1 kg Body Mass Index: 24.2 BMI Classification: Healthy weight - NPO >8 hours - Is Patient ?: No - Lab Results Lab results reviewed: Yes Home Medications and Allergies Home Medications: Ambulatory Orders Acetaminophen [Tylenol] 650 mg PO Q6H PRN 02/16/21 Atorvastatin [Lipitor] 20 mg PO DAILY 02/16/21 DULoxetine [Cymbalta] 30 mg PO DAILY 02/16/21 Diclofenac Sodium [Arthritis Pain Reliever] 4 gm TP QID PRN 02/16/21 Losartan Potassium [Cozaar] 100 mg PO DAILY 02/16/21 Pantoprazole Sodium [Protonix] 40 mg PO DAILY 02/16/21 Prazosin [Minipress] 2 mg PO QPM 02/16/21 Sucralfate [Carafate] 1 tablet PO ACHS 02/16/21 amLODIPine [Norvasc] 2.5 mg PO DAILY 02/16/21 methocarbamoL [Methocarbamol] 500 mg PO TID PRN 02/16/21 traZODone [Desyrel] 50 mg PO HS PRN 02/16/21 Cholecalciferol (Vitamin D3) [Vitamin D3] 1 cap PO DAILY 11/02/14 Acetaminophen [Tylenol] 650 mg PO Q6H PRN 02/16/21 Atorvastatin [Lipitor] 20 mg PO DAILY 02/16/21 DULoxetine [Cymbalta] 30 mg PO DAILY 02/16/21 Diclofenac Sodium [Arthritis Pain Reliever] 4 gm TP QID PRN 02/16/21 Losartan Potassium [Cozaar] 100 mg PO DAILY 02/16/21 Pantoprazole Sodium [Protonix] 40 mg PO DAILY 02/16/21 Prazosin [Minipress] 2 mg PO QPM 02/16/21 Sucralfate [Carafate] 1 tablet PO ACHS 02/16/21 amLODIPine [Norvasc] 2.5 mg PO DAILY 02/16/21 methocarbamoL [Methocarbamol] 500 mg PO TID PRN 02/16/21 traZODone [Desyrel] 50 mg PO HS PRN 02/16/21 Allergies/Adverse Reactions: Allergies Allergy/AdvReac Type Severity Reaction Status Date / Time Penicillins Allergy Intermediate Edema Verified 02/22/21 08:30 Anes History & Medical History - Anesthetic History Anesthesia Complications: reports: No previous complications Family history of Anesthesia Complications: Denies Family history of Malignant Hyperthermia: Denies - Medical History Cardiovascular: reports: Hypertension, High cholesterol Pulmonary: reports: None Gastrointestinal: reports: GERD Urinary: reports: Kidney stones Musculoskeletal: reports: Osteoarthritis Endocrine/Autoimmune: reports: None Blood Disorders: reports: Anemia Skin: reports: None Smoking Status: Never smoker - Surgical History Gynecologic: reports: section Orthopedic: reports: Rotator cuff repair, Other Exam General: Alert, Oriented x3, Cooperative Dental: Loose/Frag (several at bottom loose), Poor dentition (7,8 chipped) Mouth Openin Fingerbreadth Neck Mobility: Normal Mallampati classification: II Thyromental Distance: 4-6 cm Respiratory: Lungs clear, Normal breath sounds, No respiratory distress Cardiovascular: Regular rate Neurological: Normal speech Mental/Cognitive Status: Alert/Oriented X3, Normal for patient Cognitive Status: Within normal limits Plan Anesthesia Type: General Consent for Procedure(s) Verified and Reviewed: Yes Code Status: Attempt Resuscitation ASA classification: 2-Mild systemic disease Is this case an emergency?: No
[2021-02-22] MEDS ORDERED: BUPIVACAINE 0.25% PF 30 ML VIAL ONE (09:06)
[2021-02-22] MEDS ORDERED: DEXAMETHASONE 4 MG/ML VIAL ONE (09:12)
[2021-02-22] MEDS ORDERED: ROCURONIUM 50 MG/5 ML VIAL ONE (09:12)
[2021-02-22] MEDS ORDERED: PROPOFOL 200 MG/20 ML VIAL IVP ONE (09:12)
[2021-02-22] MEDS ORDERED: LIDOCAINE-MPF 2% 5 ML VIAL ONE (09:12)
[2021-02-22] MEDS ORDERED: MIDAZOLAM 2 MG/2 ML VIAL ONE (09:15)
[2021-02-22] MEDS ORDERED: BUPIVACAINE 0.25% PF 30 ML VIAL SUBQ ONE (09:54)
[2021-02-22] MEDS ORDERED: fentaNYL 100 MCG/2 ML VIAL ONE (10:09)
[2021-02-22] MEDS ORDERED: SUGAMMADEX 200 MG/2 ML VIAL IVP ONE (10:09)
--- NOTE | 2021-02-22 11:07 | OPERATIVE REPORT ---
Operative Report - General Procedure Date: 02/22/21 Planned Procedure: laparoscopic cholecystectomy Pre-Op Diagnosis: chronic cholecystitis Procedure Performed: laparoscopic cholecystectomy Post Op Diagnosis: chronic cholecystitis - Procedure Note Primary Surgeon: hannah merino Anesthesia Technique: General ET tube, Local Pathology: gallbladder Estimated Blood Loss (mL): 10 Drain/Tube Type: Other (none) Findings: chronic cholecystitis Complications: none - Other Other Information/Narrative: The patient was properly identified, brought to the operating room and placed in supine position. Sequential compression devices were placed. General endotracheal anesthesia was induced. The patient was prepped and draped in a sterile fashion and given preoperative antibiotics. Local anesthetic was given to incision areas. An incision was made in the periumbilical area. Dissection proceeded down to fascia. The fascia was incised lifted upwards and abdomen entered with a Veress needle. CO2 was insufflated to a pressure of 15. An 11 mm trocar followed by a 30 degree scope was placed. There was no evidence of injury from Veress needle or trocar placement. Under direct vision 2 5 mm trochars were placed in the right upper quadrant and an 11 mm trocar was placed in the epigastrium. Body of the gallbladder was retracted anterior. Lateral attachments were partially taken down further mobilizing the gallbladder more anterior and away from the duodenum. The infundibulum of the gallbladder was then retracted right lateral and caudad. With minimal use of cautery a large bare cystic plate area or window was carefully created. The cystic duct was inspected from right lateral and left lateral positions. [] The cystic duct was then clipped at the gallbladder and 3 times slightly proximal and sharply divided. The cystic artery was clipped at the gallbladder and then 2 times slightly proximal and sharply divided. The gallbladder was mobilized off from the bed of the liver with hook cautery. The gallbladder was placed in Endo Catch bag and brought out through the epigastric trocar site. Hemostasis was assured. Trochars were removed under direct vision. Fascia at the larger trocar sites was closed with [id number] are running 0 Vicryl suture. Subcutaneous tissue was irrigated and skin closed with interrupted 4-0 Monocryl. Dressings were applied. Patient tolerated the procedure well was awakened and brought to recovery in good condition.
[2021-02-22] MEDS: HYDROcod/ACETAM 5/325 MG TABLET PO PRN ×2 (13:44→18:55)
--- NOTE | 2021-02-22 15:41 | ANESTHESIA POST OP EVALUATION ---
Anesthesia Post Eval - Post Anesthesia Eval Vitals: Last Vital Signs Temp 36.6 C 02/22/21 13:37 Pulse 88 02/22/21 13:37 Resp 18 02/22/21 13:37 BP 147/81 H 02/22/21 13:37 Pulse Ox 97 02/22/21 13:37 CV Function Including HR & BP: Stable Pain Control: Satisfactory Nausea & Vomiting: Negative Mental Status: Baseline Respiratory Status: Airway Patent Hydration Status: Satisfactory Anesthesia Complications: None
[2021-02-22] MEDS: BENZOCAINE/MENTHOL LOZENGE MM PRN (18:58)
[2021-02-23] MEDS: HYDROcod/ACETAM 5/325 MG TABLET PO PRN ×2 (05:22→11:40)
[2021-02-23] MEDS: BENZOCAINE/MENTHOL LOZENGE MM PRN ×2 (05:25→11:40)
[2021-02-23 07:44] VITALS: BP 112/67
== END 2021-02-23 12:00 | disposition home or self-care (01) ==
LOC: SDS 07:56 → MS2 11:30 → SDS 02-23 12:00
PROVIDERS: ATTEND Surgery
PROC: 0FT44ZZ Resection of Gallbladder, Percutaneous Endoscopic Approach (ICD-10-PCS; principal; 2021-02-22 09:15)
DX: K80.10 Calculus of gallbladder with chronic cholecystitis without obstruction (principal)
CPT/HCPCS: 47562; A9270; J0690; J7120

== ENCOUNTER 2021-03-28 13:00 | Outpatient (CLI) | payer MEDICAID ==
--- NOTE | 2021-03-28 16:26 | XRAY Report ---
PROCEDURE: Foot 3 View RT INDICATIONS: R FOOT PX TECHNIQUE: 3 weight bearing views of the foot were acquired. COMPARISON: None. FINDINGS: Bones: No acute fractures or dislocations. Mild diffuse osteopenia. Mild pes planus. Small plantar calcaneal and retrocalcaneal enthesophytes. No suspicious bony lesions. Soft tissues: No tibiotalar joint effusion. Achilles tendon appears normal. IMPRESSION: Mild pes planus. Small calcaneal enthesophytes. Reviewed by: Alex Hayward MD on 03/28/2021 4:24 PM PDT Approved by: Alex Hayward MD on 03/28/2021 4:24 PM PDT Station ID: [id number]
== END 2021-03-28 23:59 | disposition home or self-care (01) ==
LOC: DI.N 13:00
PROVIDERS: ATTEND Physician Assistant
DX: M77.31 Calcaneal spur, right foot (principal); M21.41 Flat foot [pes planus] (acquired), right foot

== ENCOUNTER 2021-04-06 16:27 | Outpatient (CLI) | payer MEDICAID ==
--- NOTE | 2021-04-07 09:30 | XRAY Report ---
PROCEDURE: Ribs 2 View RT INDICATIONS: RIGHT RIB PAIN TECHNIQUE: 2 views of the right ribs were acquired. COMPARISON: None FINDINGS: Surgical changes and devices: Surgical clips are seen in gallbladder fossa.. Bones and chest wall: Minimally displaced fracture involving right lateral sixth rib is seen. No othe r rib fracture is noted. No suspicious bony lesions. Overlying soft tissues appear unremarkable. Lungs and pleura: The visualized lung appears clear. No pleural effusions or pneumothorax are visib le. IMPRESSION: Minimally displaced right posterior lateral sixth rib fracture. No acute cardiopulmonary pathology. Reviewed by: Marin Bee MD on 04/07/2021 9:29 AM PDT Approved by: Marin Bee MD on 04/07/2021 9:29 AM PDT Station ID: [id number]
== END 2021-04-06 23:59 | disposition home or self-care (01) ==
LOC: DI.N 16:27
PROVIDERS: ATTEND Family Medicine
DX: S22.31XA Fracture of one rib, right side, initial encounter for closed fracture (principal)

== ENCOUNTER 2021-04-09 12:16 | Outpatient (CLI) | payer MEDICAID ==
--- NOTE | 2021-04-09 15:26 | XRAY Report ---
PROCEDURE: Ribs w/PA Chest RT INDICATIONS: RIGHT SIDE RIB PAIN TECHNIQUE: 2 views of the right ribs were acquired, along with a single view chest. COMPARISON: 04/06/2021 FINDINGS: Surgical changes and devices: Cholecystectomy clips are seen. Bones and chest wall: There is a minimally displaced right lateral sixth rib fracture, which is simil ar to the prior examination. No additional fractures or dislocations. No suspicious bony lesions. Ag e-appropriate degenerative changes are seen. Overlying soft tissues appear unremarkable. Lungs and pleura: No pleural effusions or pneumothorax. Lungs appear clear. Mediastinum: Mediastinal contours appear normal. Heart size is normal. IMPRESSION: Stable minimally displaced right lateral sixth rib fracture. No associated pneumothorax. Reviewed by: Federico Ayala MD on 04/09/2021 2:25 PM ROSS Approved by: Federico Ayala MD on 04/09/2021 2:25 PM ROSS Station ID: [id number]
== END 2021-04-09 12:17 | disposition home or self-care (01) ==
LOC: DI.N 12:16
PROVIDERS: ATTEND Physician Assistant Medical
DX: S22.31XA Fracture of one rib, right side, initial encounter for closed fracture (principal)

== ENCOUNTER 2021-04-12 12:03 | Outpatient (CLI) | payer MEDICAID ==
[2021-04-12] MEDS ORDERED: BUFFERED LIDOCAINE 10 ML SYRINGE ONE (12:10)
[2021-04-12] MEDS ORDERED: ROPIVACAINE 0.5% PF 20 ML AMPULE ONE (12:20)
[2021-04-12] MEDS ORDERED: TRIAMCINOLONE 40 MG/ML VIAL ONE (12:20)
[2021-04-12] MEDS ORDERED: iohexoL-240 20 ML VIAL IVP ONE (13:59)
[2021-04-12] MEDS ORDERED: TRIAMCINOLONE 40 MG/ML VIAL IM ONE (14:03)
[2021-04-12] MEDS ORDERED: BUFFERED LIDOCAINE 10 ML SYRINGE IU ONE (14:03)
[2021-04-12] MEDS ORDERED: ROPIVACAINE 0.5% PF 20 ML VIAL SUBQ ONE (14:30)
--- NOTE | 2021-04-12 14:44 | XRAY Report ---
PROCEDURE: Inj/Aspiration Major Joint INDICATIONS: DJD OF RIGHT HIP CONTRAST: CONTRAST: omnipaque FLUORO TIME: FLUORO TIME: 0.5 min and NUMBER IMAGES: 1 TECHNIQUE: The indications, alternatives, benefits, risks, and complications of the procedure were explained to the patient. Written informed consent was obtained and placed in the chart. The patient was placed in an appropriate position on the fluoroscopy table, and a site was chosen for percutaneous access un alanna fluoroscopic guidance. Local anesthetic was administered using a 1% lidocaine solution. A hypod ermic or spinal needle was then used to access the symptomatic joint. Intra-articular location of th e needle tip was confirmed by injecting a small amount of contrast, followed by steroid administratio n. The needle was then withdrawn, and a bandage applied to the puncture site. FINDINGS: Joint injected: Right hip Medications injected: 4 mL of 40 mg/mL Kenalog and 0.5% Ropivacaine mixture. Complications: None. IMPRESSION: Successful fluoroscopically guided administration of steroid and anaesthetic solution into the right hip joint. Reviewed by: Christine Freitas MD on 04/12/2021 2:43 PM PDT Approved by: Christine Freitas MD on 04/12/2021 2:43 PM PDT Station ID: [id number]
[2021-04-12] MEDS ORDERED: ROPIVACAINE 0.5% PF 20 ML AMPULE SUBQ ONE (15:00)
== END 2021-04-12 12:04 | disposition home or self-care (01) ==
LOC: DI 12:03
PROVIDERS: ATTEND Physician Assistant
DX: M16.11 Unilateral primary osteoarthritis, right hip (principal)
CPT/HCPCS: 20610; Q9966

== ENCOUNTER 2021-04-19 08:00 | Outpatient (CLI) | payer MEDICAID ==
[2021-04-19 17:53] LABS: BASOPHILS % (AUTO) 0.4 %; EOSINOPHILS # (AUTO) 0.1 10^3/uL (0.0-0.7); EOSINOPHILS % (AUTO) 1.3 %; HCT - HEMATOCRIT 41.6 % (37.0-47.0); HGB - HEMOGLOBIN 13.2 g/dL (12.0-16.0); LYMPHOCYTES # (AUTO) 2.2 10^3/uL (1.5-3.5); LYMPHOCYTES % (AUTO) 21.6 %; MEAN CORPUSCULAR HEMOGLOBIN 29.3 pg (27.0-31.0); MEAN CORPUSCULAR HGB CONC 31.7 g/dL (32.0-36.0); MEAN CORPUSCULAR VOLUME 92.4 fL (81.0-99.0); MEAN PLATELET VOLUME 9.9 fL (7.9-10.8); MONOCYTES # (AUTO) 0.6 10^3/uL (0.0-1.0); MONOCYTES % (AUTO) 5.7 %; NEUTROPHILS # (AUTO) 7.3 10^3/uL (1.5-6.6); NEUTROPHILS % (AUTO) 70.6 %; PLT - PLATELET COUNT 243 10^3/uL (130-450); RED CELL DISTRIBUTION WIDTH 14.5 % (12.0-15.0); WHITE BLOOD COUNT 10.3 x10^3/uL (4.8-10.8)
[2021-04-19 18:26] LABS: ALBUMIN 4.2 g/dL (3.2-5.5); ALBUMIN/GLOBULIN RATIO 1.4 (1.0-2.2); ALKALINE PHOSPHATASE 72 IU/L (42-121); ALT ALANINE AMINOTRANSFERASE 23 IU/L (10-60); AST ASPARTATE AMINOTRANSFERASE 17 IU/L (10-42); BILIRUBIN,TOTAL 0.7 mg/dL (0.2-1.0); BUN - BLOOD UREA NITROGEN 17 mg/dL (6-20); CALCIUM 9.3 mg/dL (8.5-10.3); CARBON DIOXIDE - CO2 28 mmol/L (21-32); CHLORIDE 105 mmol/L (101-111); CHOLESTEROL 214 mg/dL; CREATININE 0.5 mg/dL (0.4-1.0); GFR - MDRD 125 (>89); GLUCOSE 120 mg/dL (70-100); HDL CHOLESTEROL 54 mg/dL; LDL CHOLESTEROL,CALCULATED 134 mg/dL; LDL/HDL RATIO 2.5 (<4.4); POTASSIUM 3.9 mmol/L (3.5-5.0); SODIUM 141 mmol/L (135-145); TOTAL PROTEIN 7.3 g/dL (6.7-8.2); TRIGLYCERIDES 130 mg/dL; VLDL CHOLESTEROL 26 mg/dL
== END 2021-04-19 23:59 | disposition home or self-care (01) ==
LOC: LAB.WCP 08:00
PROVIDERS: ATTEND Family Medicine
DX: I10 Essential (primary) hypertension (principal)
CPT/HCPCS: 36415; 80053; 80061; 83721; 85025

== ENCOUNTER 2021-04-24 08:00 | Outpatient (CLI) | payer MEDICAID ==
[2021-04-25 18:07] LABS: FECAL OCCULT BLOOD (FIT) NEGATIVE (NEGATIVE)
== END 2021-04-24 23:59 | disposition home or self-care (01) ==
LOC: LAB.WC 08:00
PROVIDERS: ATTEND Family Medicine
DX: Z12.11 Encounter for screening for malignant neoplasm of colon (principal)
CPT/HCPCS: 82274

== ENCOUNTER 2021-06-15 10:40 | Outpatient (CLI) | payer MEDICAID ==
--- NOTE | 2021-06-27 13:45 | Mammography Report ---
BILATERAL DIGITAL SCREENING MAMMOGRAM: 06/15/2021 CLINICAL: Routine screening. Comparison is made to exams dated: 04/23/2017 mammogram, 04/21/2014 mammogram, and 01/02/2013 mammogram - [facility]. There are scattered fibroglandular elements in both breasts. No significant masses, calcifications, or other findings are seen in either breast. There has been no significant interval change. IMPRESSION: NEGATIVE There is no mammographic evidence of malignancy. A 1 year screening mammogram is recommended. This exam was interpreted at Station ID: [id number]. NOTE: For mammograms, a report in lay terms will be sent to the patient. Approximately 15% of breast malignancies will not be visualized mammographically. In the management of a palpable breast mass, a negative mammogram must not discourage biopsy of a clinically suspicious lesion. Electronically Signed By: Reg Turner M.D., jr/katlyn:06/26/2021 16:07:51 ACR BI-RADS Category 1: Negative 3341F PARENCHYMAL PATTERN: (A) - The breast(s) demonstrate(s) scattered fibroglandular densities. BI-RADS CATEGORY: (1) - 1 RECOMMENDATION: (ANNUAL) - Recommend routine annual screening mammography. [id number] 1 year screening LATERALITY: (B)
== END 2021-06-15 10:41 | disposition home or self-care (01) ==
LOC: DI.N 10:40
DX: Z12.31 Encounter for screening mammogram for malignant neoplasm of breast (principal)

== ENCOUNTER 2021-08-03 08:05 | Outpatient (CLI) | payer MEDICAID ==
--- NOTE | 2021-08-03 08:55 | XRAY Report ---
PROCEDURE: Hip w/Pelvis 2-3V RT INDICATIONS: DJD RIGHT HIP TECHNIQUE: AP pelvis with lateral view(s) of the hip(s). COMPARISON: None. FINDINGS: Bones: No fractures or dislocations. The right hip has degenerative changes with joint space narrowi ng and osteophytes. Similar but less severe joint space narrowing and osteophytes are seen in the lef t hip. Pelvic ring appears intact. No suspicious bony lesions. Soft tissues: The visualized bowel gas pattern is normal. No suspicious soft tissue calcifications. IMPRESSION: Degenerative changes of both hips consistent with osteoarthritis, worse on the right. Reviewed by: Norberto Holcomb on 08/03/2021 8:54 AM PST Approved by: Norberto Holcomb on 08/03/2021 8:54 AM PST Station ID: [id number]
== END 2021-08-03 23:59 | disposition home or self-care (01) ==
LOC: DI.N 08:05
PROVIDERS: ATTEND Physician Assistant
DX: M16.0 Bilateral primary osteoarthritis of hip (principal)

== ENCOUNTER 2021-10-18 13:40 | Outpatient (CLI) | payer MEDICAID ==
[2021-10-18 18:05] LABS: BASOPHILS % (AUTO) 0.3 %; EOSINOPHILS # (AUTO) 0.1 10^3/uL (0.0-0.7); EOSINOPHILS % (AUTO) 0.6 %; HCT - HEMATOCRIT 38.8 % (37.0-47.0); HGB - HEMOGLOBIN 12.3 g/dL (12.0-16.0); LYMPHOCYTES # (AUTO) 2.1 10^3/uL (1.5-3.5); LYMPHOCYTES % (AUTO) 24.3 %; MEAN CORPUSCULAR HEMOGLOBIN 29.3 pg (27.0-31.0); MEAN CORPUSCULAR HGB CONC 31.7 g/dL (32.0-36.0); MEAN CORPUSCULAR VOLUME 92.4 fL (81.0-99.0); MEAN PLATELET VOLUME 10.5 fL (7.9-10.8); MONOCYTES # (AUTO) 0.6 10^3/uL (0.0-1.0); MONOCYTES % (AUTO) 6.7 %; NEUTROPHILS % (AUTO) 67.9 %; PLT - PLATELET COUNT 215 10^3/uL (130-450); RED CELL DISTRIBUTION WIDTH 13.9 % (12.0-15.0); WHITE BLOOD COUNT 8.8 x10^3/uL (4.8-10.8)
[2021-10-18 18:24] LABS: ALBUMIN 4.2 g/dL (3.2-5.5); ALBUMIN/GLOBULIN RATIO 1.4 (1.0-2.2); ALKALINE PHOSPHATASE 71 IU/L (42-121); ALT ALANINE AMINOTRANSFERASE 16 IU/L (10-60); AST ASPARTATE AMINOTRANSFERASE 16 IU/L (10-42); BILIRUBIN,TOTAL 0.6 mg/dL (0.2-1.0); BUN - BLOOD UREA NITROGEN 18 mg/dL (6-20); CALCIUM 9.2 mg/dL (8.5-10.3); CARBON DIOXIDE - CO2 28 mmol/L (21-32); CHLORIDE 102 mmol/L (101-111); CHOL/HDL RATIO 2.5 (<4.4); CHOLESTEROL 122 mg/dL; CREATININE 0.5 mg/dL (0.4-1.0); GFR - MDRD 124 (>89); GLUCOSE 89 mg/dL (70-100); HDL CHOLESTEROL 48 mg/dL; LDL CHOLESTEROL,CALCULATED 56 mg/dL; LDL/HDL RATIO 1.2 (<4.4); POTASSIUM 3.9 mmol/L (3.5-5.0); SODIUM 139 mmol/L (135-145); TOTAL PROTEIN 7.2 g/dL (6.7-8.2); TRIGLYCERIDES 91 mg/dL; VLDL CHOLESTEROL 18 mg/dL
== END 2021-10-18 13:41 | disposition home or self-care (01) ==
LOC: LAB.N 13:40
PROVIDERS: ATTEND Family Medicine
DX: I10 Essential (primary) hypertension (principal); E78.5 Hyperlipidemia, unspecified; D50.9 Iron deficiency anemia, unspecified
CPT/HCPCS: 36415; 80053; 80061; 83721; 85025

== ENCOUNTER 2021-12-09 11:32 | Outpatient (CLI) | payer MEDICAID | END 2021-12-09 11:33 | disposition critical access hospital (66) | LOC: EMS 11:32 | DX: R11.2 Nausea with vomiting, unspecified (principal); R68.83 Chills (without fever) | CPT/HCPCS: A0425; A0427; A0999 ==

== ENCOUNTER 2021-12-09 11:44 | Emergency (ER) | payer MEDICAID ==
[2021-12-09 11:58] VITALS: BP 134/80
[2021-12-09] MEDS ORDERED: SODIUM CHLORIDE 0.9% 1,000 ML IV STA (12:07)
[2021-12-09] MEDS ORDERED: ONDANSETRON 4 MG/2 ML VIAL IVP STA (12:07)
--- NOTE | 2021-12-09 12:08 | ED Physician Documentation ---
History of Present Illness - Stated complaint Stated Complaint: N/V - Chief complaint Chief Complaint: Abd Pain - History obtained from History obtained from: Patient - Additonal information Additional information: 66-year-old woman with arthritis and a history of traumatic injury causing prolonged coma and intubation in the was in her usual state of health cleaning her bathroom last night and using a combination of Lysol and Ajax, no bleach, she started to feel nausea and vomiting and nonspecific dizziness. Not vertigo per se. It is persistent today. There is no associated chest pain or trouble breathing. No diarrhea or abdominal pain. Review of Systems Ten Systems: 10 systems reviewed and negative Constitutional: denies: Fever, Chills, Fatigue Cardiac: denies: Chest pain / pressure, Palpitations Respiratory: denies: Dyspnea, Cough GI: reports: Nausea, Vomiting. 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 - Present Medications Home Medications: Ambulatory Orders Medication Instructions Recorded Confirmed Cholecalciferol (Vitamin D3) 1 cap PO DAILY 11/02/14 12/09/21 [Vitamin D3] Acetaminophen [Tylenol] 650 mg PO Q6H PRN 02/16/21 12/09/21 DULoxetine [Cymbalta] 30 mg PO DAILY 02/16/21 12/09/21 Diclofenac Sodium [Arthritis Pain 4 gm TP QID PRN 02/16/21 12/09/21 Reliever] Prazosin [Minipress] 2 mg PO QPM 02/16/21 12/09/21 amLODIPine [Norvasc] 2.5 mg PO DAILY 02/16/21 12/09/21 methocarbamoL [Methocarbamol] 500 mg PO TID PRN 02/16/21 12/09/21 traZODone [Desyrel] 50 mg PO HS PRN 02/16/21 12/09/21 Metoclopramide [Reglan] 10 mg PO Q6H PRN #10 tablet 12/09/21 - Allergies Allergies/Adverse Reactions: Allergies Allergy/AdvReac Type Severity Reaction Status Date / Time Penicillins Allergy Intermediate Edema Verified 02/22/21 08:30 - Social History Does the pt smoke?: No Smoking Status: Never smoker Does the pt drink ETOH?: No Does the pt have substance abuse?: No - Immunizations Immunizations are current?: Yes - POLST Patient has POLST: No PD ED PE NORMAL - Vitals Vital signs reviewed: Yes - General General: Alert and oriented X 3, No acute distress - HEENT HEENT: PERRL, EOMI - Neck Neck: Supple, no meningeal sign, No bony TTP - Cardiac Cardiac: RRR, No murmur - Respiratory Respiratory: No respiratory distress, Clear bilaterally - Abdomen Abdomen: Normal bowel sounds, Soft, Non tender - Back Back: No CVA TTP, No spinal TTP - Derm Derm: Normal color, Warm and dry - Extremities Extremities: Other (LLE in splint) - Neuro Neuro: Alert and oriented X 3, Normal speech Eye Opening: Spontaneous Motor: Obeys Commands Verbal: Oriented GCS Score: 15 Results - Vitals Vitals: Vital Signs - 24 hr 12/09/21 11:55 Temperature 36.7 C Heart Rate 85 Respiratory 16 Rate Blood Pressure 134/80 H O2 Saturation 100 Oxygen O2 Source Room air - EKG (time done) 1214 Rate: Rate (enter#) (86) Rhythm: NSR [place]: Normal Intervals: Normal CT QRS: Normal Ischemia: Normal ST segments - Labs Labs: Laboratory Tests 12/09/21 12/09/21 12/09/21 12:19 12:19 12:19 WBC 12.1 H RBC 4.15 L Hgb 12.3 Hct 37.1 MCV 89.4 MCH 29.6 MCHC 33.2 RDW 13.4 Plt Count 207 MPV 9.9 Neut # (Auto) 10.2 H Lymph # (Auto) 1.3 L [place] # (Auto) 0.6 Eos # (Auto) 0.0 Baso # (Auto) 0.0 Absolute Nucleated RBC 0.00 Nucleated RBC % 0.0 Sodium 139 Potassium 3.8 Chloride 102 Carbon Dioxide 25 Anion Gap 12.0 BUN 16 Creatinine 0.4 Estimated GFR (MDRD) 161 Glucose 114 H Calcium 8.9 Magnesium 2.0 Total Bilirubin 0.5 AST 21 ALT 17 Alkaline Phosphatase 62 Troponin I High Sens 3.1 Total Protein 7.1 Albumin 4.0 Globulin 3.1 Albumin/Globulin Ratio 1.3 Urine Color Urine Clarity Urine pH Ur Specific [place] Urine Protein Urine Glucose (UA) Urine Ketones Urine Occult Blood Urine Nitrite Urine Bilirubin Urine Urobilinogen Ur Leukocyte Esterase Ur Microscopic Review Urine Culture Comments 12/09/21 13:30 WBC RBC Hgb Hct MCV MCH MCHC RDW Plt Count MPV Neut # (Auto) Lymph # (Auto) [place] # (Auto) Eos # (Auto) Baso # (Auto) Absolute Nucleated RBC Nucleated RBC % Sodium Potassium Chloride Carbon Dioxide Anion Gap BUN Creatinine Estimated GFR (MDRD) Glucose Calcium Magnesium Total Bilirubin AST ALT Alkaline Phosphatase Troponin I High Sens Total Protein Albumin Globulin Albumin/Globulin Ratio Urine Color YELLOW Urine Clarity CLEAR Urine pH 7.5 Ur Specific [place] 1.015 Urine Protein NEGATIVE Urine Glucose (UA) NEGATIVE Urine Ketones NEGATIVE Urine Occult Blood TRACE-INTA Urine Nitrite NEGATIVE Urine Bilirubin NEGATIVE Urine Urobilinogen 0.2 (NORMAL) Ur Leukocyte Esterase NEGATIVE Ur Microscopic Review NOT INDICATED Urine Culture Comments NOT INDICATED PD MEDICAL DECISION MAKING - ED course ED course: 66-year-old woman with vomiting and dizziness after using cleaning products yesterday. It is not associated with headache or abdominal pain. No diarrhea. Her examination is unremarkable. Atypical coronary presentation was considered but EKG nonischemic and troponin negative. Remainder of her labs are generally unremarkable with exception of white count of 12.1. She was given close return precautions. She was feeling no relief after Zofran but did get relief after IV Reglan. Departure - Departure Disposition: 01 Home, Self Care Clinical Impression: Vomiting, Dizziness Condition: Good Record reviewed to determine appropriate education?: Yes Instructions: ED Dizziness UKO, ED Nausea Vomiting Prescriptions: Metoclopramide [Reglan] 10 mg PO Q6H PRN #10 tablet PRN Reason: nausea or headache Comments: I sent [facility] in [place]. Return if worsening or if not better in the next 24 hours.
[2021-12-09 12:26] LABS: BASOPHILS % (AUTO) 0.2 %; EOSINOPHILS % (AUTO) 0.1 %; HCT - HEMATOCRIT 37.1 % (37.0-47.0); HGB - HEMOGLOBIN 12.3 g/dL (12.0-16.0); LYMPHOCYTES # (AUTO) 1.3 10^3/uL (1.5-3.5); LYMPHOCYTES % (AUTO) 10.8 %; MEAN CORPUSCULAR HEMOGLOBIN 29.6 pg (27.0-31.0); MEAN CORPUSCULAR HGB CONC 33.2 g/dL (32.0-36.0); MEAN CORPUSCULAR VOLUME 89.4 fL (81.0-99.0); MEAN PLATELET VOLUME 9.9 fL (7.9-10.8); MONOCYTES # (AUTO) 0.6 10^3/uL (0.0-1.0); MONOCYTES % (AUTO) 4.5 %; NEUTROPHILS # (AUTO) 10.2 10^3/uL (1.5-6.6); PLT - PLATELET COUNT 207 10^3/uL (130-450); RED BLOOD COUNT 4.15 10^6/uL (4.20-5.40); RED CELL DISTRIBUTION WIDTH 13.4 % (12.0-15.0); WHITE BLOOD COUNT 12.1 x10^3/uL (4.8-10.8)
[2021-12-09 12:39] LABS: ALBUMIN/GLOBULIN RATIO 1.3 (1.0-2.2); BILIRUBIN,TOTAL 0.5 mg/dL (0.2-1.0); CALCIUM 8.9 mg/dL (8.5-10.3); CREATININE 0.4 mg/dL (0.4-1.0); POTASSIUM 3.8 mmol/L (3.5-5.0); TOTAL PROTEIN 7.1 g/dL (6.7-8.2)
[2021-12-09] MEDS ORDERED: METOCLOPRAMIDE 10 MG/2 ML VIAL IVP STA (12:50)
[2021-12-09 13:34] LABS: BILIRUBIN,URINE NEGATIVE (NEGATIVE); GLUCOSE, URINE (UA) NEGATIVE (NEGATIVE); KETONES,URINE (UA) NEGATIVE (NEGATIVE); LEUKOCYTE ESTERASE, URINE NEGATIVE (NEGATIVE); NITRITE,URINE NEGATIVE (NEGATIVE); OCCULT BLOOD,URINE TRACE-INTA (NEGATIVE); PH,URINE 7.5 PH (5.0-7.5); PROTEIN,URINE NEGATIVE (NEGATIVE); UROBILINOGEN,URINE 0.2 (NORMAL) E.U./dL (NORMAL)
[2021-12-09 13:35] LABS: CLARITY,URINE CLEAR (CLEAR)
== END 2021-12-09 13:59 | disposition home or self-care (01) ==
LOC: EDUNIT# → ED 11:44
DX: R11.2 Nausea with vomiting, unspecified (principal); R42 Dizziness and giddiness
CPT/HCPCS: 36415; 80053; 81003; 83735; 84484; 85025; 93005; 96374; 96375; 99282; 99283; J2765; 81001; 87086

== ENCOUNTER 2022-01-30 06:00 | Outpatient (CLI) | payer MEDICAID ==
--- NOTE | 2022-01-30 16:11 | XRAY Report ---
PROCEDURE: Knee 4 View BILAT INDICATIONS: BILAT KNEE PAIN TECHNIQUE: 4 views of the bilateral knee(s) were acquired. COMPARISON: None. FINDINGS: Bones: No fractures or dislocations. No suspicious bony lesions. On the right, there is mild media l and lateral compartment joint space loss. On the left, there is moderate medial compartment joint s pace loss. There are minimal osteophytes bilaterally. Soft tissues: No joint effusion. No suspicious soft tissue calcifications. IMPRESSION: Bilateral degenerative arthritis, left greater than right. No evidence acute bony abnorm ality of the bilateral knees. If clinical suspicion and/or symptoms persist, further assessment with repeat plain films or advanced imaging (e.g., CT, MRI, or bone scan) may be helpful for further assessment. Reviewed by: Larry Giron MD on 01/30/2022 4:10 PM PDT Approved by: Larry Giron MD on 01/30/2022 4:10 PM PDT Station ID: [id number]
== END 2022-01-30 23:59 | disposition home or self-care (01) ==
LOC: DI.WOS 06:00 → DI 10:44 → DI.WOS 23:59
PROVIDERS: ATTEND Physician Assistant
DX: M17.0 Bilateral primary osteoarthritis of knee (principal)

== ENCOUNTER 2022-05-28 08:00 | Outpatient (CLI) | payer MEDICAID ==
--- NOTE | 2022-05-28 15:45 | XRAY Report ---
PROCEDURE: Hip 2 View RT INDICATIONS: RIGHT HIP PAIN TECHNIQUE: 2 views of the hip were acquired. COMPARISON: 08/03/2021 FINDINGS: Bones: No fractures or dislocations. Moderate right hip joint osteoarthritic changes are seen with j oint space narrowing, subchondral sclerosis and prominent marginal osteophyte formation. No evidence of avascular necrosis of femoral head. No suspicious bony lesions. The visualized pelvic ring appear s intact. Soft tissues: 2.5 x 1.6 cm oval calcification projecting in right lower pelvis is seen likely represe nt calcified uterine fibroid. IMPRESSION: Moderate right hip joint osteoarthritis. No hip fracture or dislocation. No evidence of avascular nec rosis of femoral head. Reviewed by: Marin Bee MD on 05/28/2022 3:43 PM PDT Approved by: Marin Bee MD on 05/28/2022 3:43 PM PDT Station ID: [id number]
--- NOTE | 2022-05-28 15:49 | XRAY Report ---
PROCEDURE: Foot 3 View RT INDICATIONS: RIGHT FOOT PAIN TECHNIQUE: 3 views of the foot were acquired. COMPARISON: 03/28/2021 FINDINGS: Bones: Again noted is significant pes planus. Mild midfoot and hindfoot joint osteoarthritic changes are seen more prominent at talonavicular joint. No fractures or dislocations. No suspicious bony le sions. Small plantar and dorsal calcaneal enthesophytes are again seen. Soft tissues: No tibiotalar joint effusion. Achilles tendon appears normal. IMPRESSION: Mild to moderate pes planus. No fracture or dislocation. Mild midfoot and hindfoot joint osteoarthrit is. Small calcaneal enthesophytes. Reviewed by: Marin Bee MD on 05/28/2022 3:48 PM PDT Approved by: Marin Bee MD on 05/28/2022 3:48 PM PDT Station ID: [id number]
--- NOTE | 2022-05-28 19:51 | XRAY Report ---
PROCEDURE: Lumbar Spine Complete INDICATIONS: LOW BACK PAIN TECHNIQUE: 4 views of the lumbar spine were acquired. COMPARISON: Lumbar spine radiographs 01/07/2020. FINDINGS: Bones: 5 [id number] vertebrae are present. Similar mild right convexity curvature centered at L3. Mild multilevel disc height loss and endplate spurring. Lower lumbar facet degenerative changes p resent. No lumbar vertebral body compression fractures. Mild superior compression deformity of T12, probably about one quarter vertebral body height loss. No suspicious bony lesions. No definite pars defects o n oblique images. Soft tissues: Overlying bowel gas pattern is normal. No suspicious soft tissue calcifications. Rig ht upper quadrant metal clips could indicate prior cholecystectomy. IMPRESSION: Mild-moderate multilevel degenerative changes of the lumbar spine. Reviewed by: Villa Gracia MD on 05/28/2022 7:49 PM PDT Approved by: Villa Gracia MD on 05/28/2022 7:49 PM PDT Station ID: [id number]
== END 2022-05-28 23:59 | disposition home or self-care (01) ==
LOC: DI.WOS 08:00
PROVIDERS: ATTEND Physician Assistant
DX: M47.816 Spondylosis without myelopathy or radiculopathy, lumbar region (principal); M51.36 Other intervertebral disc degeneration, lumbar region; M43.8X4 Other specified deforming dorsopathies, thoracic region; M16.11 Unilateral primary osteoarthritis, right hip; M19.071 Primary osteoarthritis, right ankle and foot; M21.41 Flat foot [pes planus] (acquired), right foot; M77.31 Calcaneal spur, right foot

== ENCOUNTER 2023-03-04 08:01 | Outpatient (CLI) | payer MEDICARE, MEDICAID ==
--- NOTE | 2023-03-04 13:51 | DEXA Report ---
PROCEDURE: Dexa Spine and/or Hip INDICATIONS: POST MENOPAUSAL TECHNIQUE: Dual energy x-ray absorptiometry (DXA) was performed on a Giv.to System. Regions measur ed are the AP Spine, femoral neck, and if needed forearm. COMPARISON: 03/11/2019 FINDINGS: Lumbar Spine: Bone Mineral Density 0.846 g/cm/cm,T score -2.8. Since the most recent prior study, there has been a statistically significant decrease in bone mineral density by 13.6 percent. Left Femoral Neck: Bone Mineral Density 0.710 g/cm/cm, T score -2.4. Left Hip: Bone Mineral Density 0.643 g/cm/cm,T score -2.9. Previous hip measurements were performed of the right hip. The right hip was not imaged on the Stand Offer t study due to patient inability to rotate the right leg due to a leg brace. (T score greater or equal to -1.0: NORMAL) (T score from -1.1 to -2.4: OSTEOPENIA) (T score less than or equal to -2.5 to: OSTEOPOROSIS) Impression: By WHO criteria, this patient has osteoporosis. Interval statistical decrease in bone minteral density of the lumbar spine. Patients with diagnosis of osteoporosis or osteopenia should have regular bone mineral density assess ment. For those eligible for Medicare, routine testing is allowed once every 2 years. Testing frequ ency can be increased for patients who have rapidly progressing disease or for those who are receivin g medical therapy to restore bone mass. Reviewed by: Villa Gracia MD on 03/04/2023 1:49 PM PDT Approved by: Villa Gracia MD on 03/04/2023 1:49 PM PDT Station ID: [id number]
== END 2023-03-04 08:02 | disposition home or self-care (01) ==
LOC: DI 08:01
PROVIDERS: ATTEND Nurse Practitioner Family
DX: Z78.0 Asymptomatic menopausal state (principal); M81.0 Age-related osteoporosis without current pathological fracture

== ENCOUNTER 2023-03-13 15:15 | Outpatient (CLI) | payer MEDICARE, MEDICAID ==
[2023-03-13 17:58] LABS: BASOPHILS % (AUTO) 0.4 %; EOSINOPHILS # (AUTO) 0.1 10^3/uL (0.0-0.7); EOSINOPHILS % (AUTO) 0.8 %; HCT - HEMATOCRIT 38.4 % (37.0-47.0); HGB - HEMOGLOBIN 12.1 g/dL (12.0-16.0); LYMPHOCYTES # (AUTO) 2.4 10^3/uL (1.5-3.5); LYMPHOCYTES % (AUTO) 24.3 %; MEAN CORPUSCULAR HEMOGLOBIN 28.5 pg (27.0-31.0); MEAN CORPUSCULAR HGB CONC 31.5 g/dL (32.0-36.0); MEAN CORPUSCULAR VOLUME 90.6 fL (81.0-99.0); MEAN PLATELET VOLUME 10.8 fL (7.9-10.8); MONOCYTES # (AUTO) 0.5 10^3/uL (0.0-1.0); MONOCYTES % (AUTO) 5.4 %; NEUTROPHILS # (AUTO) 6.8 10^3/uL (1.5-6.6); NEUTROPHILS % (AUTO) 68.9 %; PLT - PLATELET COUNT 227 10^3/uL (130-450); RED BLOOD COUNT 4.24 10^6/uL (4.20-5.40); RED CELL DISTRIBUTION WIDTH 14.4 % (12.0-15.0); WHITE BLOOD COUNT 9.9 x10^3/uL (4.8-10.8)
[2023-03-13 17:59] LABS: ALBUMIN 4.1 g/dL (3.2-5.5); ALBUMIN/GLOBULIN RATIO 1.5 (1.0-2.2); ALKALINE PHOSPHATASE 68 IU/L (42-121); ALT ALANINE AMINOTRANSFERASE 13 IU/L (10-60); AST ASPARTATE AMINOTRANSFERASE 14 IU/L (10-42); BILIRUBIN,TOTAL 0.4 mg/dL (0.2-1.0); BUN - BLOOD UREA NITROGEN 20 mg/dL (6-20); CALCIUM 9.3 mg/dL (8.5-10.3); CARBON DIOXIDE - CO2 32 mmol/L (21-32); CHLORIDE 103 mmol/L (101-111); CHOL/HDL RATIO 2.9 (<4.4); CHOLESTEROL 132 mg/dL; CREATININE 0.5 mg/dL (0.6-1.3); GFR - MDRD 124 (>89); GLUCOSE 111 mg/dL (74-104); HDL CHOLESTEROL 45 mg/dL; LDL CHOLESTEROL,CALCULATED 55 mg/dL; LDL/HDL RATIO 1.2 (<4.4); POTASSIUM 3.9 mmol/L (3.5-4.5); SODIUM 139 mmol/L (135-145); TOTAL PROTEIN 6.9 g/dL (6.4-8.9); TRIGLYCERIDES 159 mg/dL (48-352); VLDL CHOLESTEROL 32 mg/dL
[2023-03-13 18:06] LABS: THYROID STIMULATING HORMONE 0.86 uIU/mL (0.34-5.60)
== END 2023-03-13 15:16 | disposition home or self-care (01) ==
LOC: LAB.N 15:15
PROVIDERS: ATTEND Nurse Practitioner Family
DX: I10 Essential (primary) hypertension (principal); E78.5 Hyperlipidemia, unspecified
CPT/HCPCS: 36415; 80053; 80061; 83721; 84443; 85025

== ENCOUNTER 2023-09-03 13:47 | Outpatient (CLI) | payer MEDICAID, MEDICARE ==
--- NOTE | 2023-09-04 11:22 | Ultrasound Report ---
PROCEDURE: Duplex Ext Veins Right INDICATIONS: RIGHT CALF PAIN TECHNIQUE: Real-time imaging, as well as color and pulse Doppler interrogation, were performed of the lower extr emity deep veins from the inguinal ligament to the popliteal fossa. Attempted visualization of the ca lf veins was performed. COMPARISON: None. FINDINGS: The deep veins are normally compressible, and free of intraluminal thrombus. Color and pu lse Doppler demonstrate normal phasic intraluminal flow. There is normal augmentation response to di stal compression maneuver. IMPRESSION: No deep venous thrombosis of the visualized right lower extremity. Reviewed by: Mack Lopez MD on 09/03/2023 3:35 PM PST Approved by: Mack Lopez MD on 09/03/2023 3:35 PM PST Station ID: [id number]
== END 2023-09-03 13:48 | disposition home or self-care (01) ==
LOC: DI 13:47
PROVIDERS: ATTEND Nurse Practitioner Family
DX: M79.661 Pain in right lower leg (principal)

== ENCOUNTER 2023-11-07 08:00 | Outpatient (CLI) | payer MEDICARE, MEDICAID ==
--- NOTE | 2023-11-07 17:27 | XRAY Report ---
PROCEDURE: Hip 2 View RT INDICATIONS: RIGHT HIP PAIN TECHNIQUE: Single view of the pelvis and a frog-leg lateral view of the right hip are provided. COMPARISON: None. Limitations: Study limited due to positioning, FINDINGS: Bones: No acute fracture subluxation is identified. The right proximal femur appears irregular; corre late previous healed fracture. Mild degenerative changes of the hips noted. Soft tissues: Bowel gas pattern appears unremarkable. Ossified density of the right pelvis may repres ent a fibroid. IMPRESSION: No acute fracture seen Irregular appearance of the left proximal femur; correlate with prior history of fracture. If clinica l suspicion for fracture persists, MRI may provide additional diagnostic benefit. Reviewed by: Mack Lopez MD on 11/07/2023 5:26 PM PDT Approved by: Mack Lopez MD on 11/07/2023 5:26 PM PDT Station ID: [id number]
== END 2023-11-07 23:59 | disposition home or self-care (01) ==
LOC: DI.WOS 08:00
PROVIDERS: ATTEND Physician Assistant Surgical
DX: M25.551 Pain in right hip (principal)

== ENCOUNTER 2024-01-23 09:09 | Outpatient (CLI) | payer MEDICARE ==
[2024-01-23 12:02] LABS: BASOPHILS % (AUTO) 0.4 %; EOSINOPHILS # (AUTO) 0.1 10^3/uL (0.0-0.7); EOSINOPHILS % (AUTO) 1.3 %; HCT - HEMATOCRIT 38.3 % (37.0-47.0); HGB - HEMOGLOBIN 11.7 g/dL (12.0-16.0); LYMPHOCYTES # (AUTO) 1.9 10^3/uL (1.5-3.5); LYMPHOCYTES % (AUTO) 24.2 %; MEAN CORPUSCULAR HEMOGLOBIN 29.3 pg (27.0-31.0); MEAN CORPUSCULAR HGB CONC 30.5 g/dL (32.0-36.0); MEAN CORPUSCULAR VOLUME 95.8 fL (81.0-99.0); MEAN PLATELET VOLUME 10.3 fL (7.9-10.8); MONOCYTES # (AUTO) 0.4 10^3/uL (0.0-1.0); MONOCYTES % (AUTO) 5.7 %; NEUTROPHILS # (AUTO) 5.2 10^3/uL (1.5-6.6); NEUTROPHILS % (AUTO) 68.1 %; PLT - PLATELET COUNT 211 10^3/uL (130-450); RED CELL DISTRIBUTION WIDTH 13.5 % (12.0-15.0); WHITE BLOOD COUNT 7.7 x10^3/uL (4.8-10.8)
[2024-01-23 12:33] LABS: ALBUMIN 4.3 g/dL (3.2-5.5); ALBUMIN/GLOBULIN RATIO 1.8 (1.0-2.2); ALKALINE PHOSPHATASE 56 IU/L (42-121); ALT ALANINE AMINOTRANSFERASE 13 IU/L (10-60); AST ASPARTATE AMINOTRANSFERASE 14 IU/L (10-42); BILIRUBIN,TOTAL 0.6 mg/dL (0.2-1.0); BUN - BLOOD UREA NITROGEN 21 mg/dL (6-20); CALCIUM 9.4 mg/dL (8.5-10.3); CARBON DIOXIDE - CO2 30 mmol/L (21-32); CHLORIDE 105 mmol/L (101-111); CHOL/HDL RATIO 2.4 (<4.4); CHOLESTEROL 130 mg/dL; CREATININE 0.5 mg/dL (0.6-1.3); GFR - MDRD 123 (>89); GLUCOSE 94 mg/dL (74-104); HDL CHOLESTEROL 54 mg/dL; LDL CHOLESTEROL,CALCULATED 64 mg/dL; LDL/HDL RATIO 1.2 (<4.4); POTASSIUM 4.1 mmol/L (3.5-4.5); SODIUM 140 mmol/L (135-145); TOTAL PROTEIN 6.7 g/dL (6.4-8.9); TRIGLYCERIDES 62 mg/dL (48-352); VLDL CHOLESTEROL 12 mg/dL
[2024-01-23 12:34] LABS: THYROID STIMULATING HORMONE 0.92 uIU/mL (0.34-5.60)
== END 2024-01-23 09:10 | disposition home or self-care (01) ==
LOC: LAB.N 09:09
PROVIDERS: ATTEND Nurse Practitioner Family
DX: Z00.00 Encounter for general adult medical examination without abnormal findings (principal)
CPT/HCPCS: 36415; 80053; 80061; 83721; 84443; 85025

== ENCOUNTER 2024-01-28 12:07 | Outpatient (CLI) | payer MEDICARE ==
[2024-01-28 18:02] LABS: BASOPHILS % (AUTO) 0.3 %; EOSINOPHILS % (AUTO) 0.4 %; HCT - HEMATOCRIT 38.7 % (37.0-47.0); HGB - HEMOGLOBIN 11.9 g/dL (12.0-16.0); LYMPHOCYTES # (AUTO) 1.8 10^3/uL (1.5-3.5); LYMPHOCYTES % (AUTO) 19.3 %; MEAN CORPUSCULAR HEMOGLOBIN 29.8 pg (27.0-31.0); MEAN CORPUSCULAR HGB CONC 30.7 g/dL (32.0-36.0); MEAN CORPUSCULAR VOLUME 96.8 fL (81.0-99.0); MEAN PLATELET VOLUME 10.9 fL (7.9-10.8); MONOCYTES # (AUTO) 0.4 10^3/uL (0.0-1.0); MONOCYTES % (AUTO) 4.1 %; NEUTROPHILS # (AUTO) 6.8 10^3/uL (1.5-6.6); NEUTROPHILS % (AUTO) 75.6 %; PLT - PLATELET COUNT 211 10^3/uL (130-450); RED CELL DISTRIBUTION WIDTH 13.8 % (12.0-15.0); WHITE BLOOD COUNT 9.1 x10^3/uL (4.8-10.8)
[2024-01-28 18:33] LABS: FERRITIN 23.9 ng/mL (11.0-306.8)
== END 2024-01-28 12:08 | disposition home or self-care (01) ==
LOC: LAB.N 12:07
PROVIDERS: ATTEND Nurse Practitioner Family
DX: D50.9 Iron deficiency anemia, unspecified (principal)
CPT/HCPCS: 36415; 82728; 83540; 84466; 85025

== ENCOUNTER 2024-01-31 16:01 | Outpatient (CLI) | payer MEDICARE ==
--- NOTE | 2024-01-31 19:49 | XRAY Report ---
PROCEDURE: Knee 4+V RT INDICATIONS: RIGHT KNEE PAIN TECHNIQUE: 4 views of the right knee(s) were acquired. COMPARISON: 01/30/2022. FINDINGS: Bones: No fractures or dislocations. No suspicious bony lesions. Bones are diffusely osteopenic. Mi ld degenerative joint space loss in the medial compartment. No significant osteophytosis. Soft tissues: No knee joint effusion. No suspicious soft tissue calcifications or masses. IMPRESSION: No acute bony abnormality. Diffuse osteopenia. Mild medial compartment joint space loss. Reviewed by: Larry Giron MD on 01/31/2024 7:47 PM PDT Approved by: Larry Giron MD on 01/31/2024 7:47 PM PDT Station ID: [id number]
== END 2024-01-31 16:02 | disposition home or self-care (01) ==
LOC: DI 16:01
PROVIDERS: ATTEND Orthopaedic Surgery
DX: M17.11 Unilateral primary osteoarthritis, right knee (principal); M85.861 Other specified disorders of bone density and structure, right lower leg

== ENCOUNTER 2024-02-05 07:30 | Day surgery (SDC) | payer MEDICARE ==
[~2024-02-05 07:30] MED LIST changes: +ATROPINE ABBOJECT 1 MG/10 ML SYRINGE IVP PRN; +DEXAMETHASONE 4 MG/ML VIAL ONE; +HYDROmorphone 0.5 MG/0.5 ML SYRINGE IVP PRN; +LACTATED RINGERS 1,000 ML IV SCH; +LIDOCAINE-PF 2% 10 ML AMP SUBQ ONE; +MIDAZOLAM 2 MG/2 ML VIAL ONE; +MORPHINE 2 MG/ML CARPUJECT IVP PRN; +NALOXONE 0.4 MG/ML VIAL IVP PRN; +ONDANSETRON 4 MG/2 ML VIAL IVP PRN; +ONDANSETRON 4 MG/2 ML VIAL ONE; +PROPOFOL 200 MG/20 ML VIAL IVP ONE; +ROCURONIUM 50 MG/5 ML VIAL ONE; -ROPIVACAINE 0.5% PF 20 ML AMPULE ONE; +ceFAZolin 2 GM VIAL ONE; +ePHEDrine 50 MG/ML VIAL IVP PRN; +fentaNYL 100 MCG/2 ML VIAL IVP PRN; +fentaNYL 100 MCG/2 ML VIAL ONE
[2024-02-05] MEDS ORDERED: BUPIVACAINE 0.25% PF 30 ML VIAL ONE (07:43)
[2024-02-05] MEDS ORDERED: VANCOMYCIN 1 GM VIAL ONE (07:43)
[2024-02-05] MEDS: ACETAMINOPHEN 500 MG TABLET PO ONE (07:49)
[2024-02-05] MEDS: CELECOXIB 100 MG CAPSULE PO ONE (07:50)
[2024-02-05] MEDS ORDERED: PROPOFOL 500 MG/50 ML 500 MG/50 ML VIAL ONE ×3 (08:00→11:24)
[2024-02-05] MEDS: LACTATED RINGERS 1,000 ML IV ONE ×3 (08:03→13:18)
[2024-02-05] MEDS: DEXAMETHASONE 10 MG/ML VIAL ONE (08:09)
--- NOTE | 2024-02-05 08:19 | ANESTHESIA ---
Pre-Anesthesia VS, & Labs - Diagnosis right hip degenerative joint disease - Procedure right hip arthroplasty Vital Signs: Temp Pulse Resp BP Pulse Ox O2 Flow Rate 36.2 C L 98 17 133/75 H 97 02/05/24 07:58 02/05/24 07:58 02/05/24 07:58 02/05/24 07:58 02/05/24 07:58 Height: 5 ft 3 in Weight (kg): 61 kg Body Mass Index: 23.8 BMI Classification: Normal - Is Patient ?: No - Lab Results Current Lab Results: Laboratory Tests 02/05/24 07:58: POC Whole Bld Glucose 70 Home Medications and Allergies Home Medications: Ambulatory Orders Alendronate [Fosamax] 70 mg PO OAW 01/28/24 Atorvastatin [Lipitor] 20 mg PO DAILY 01/28/24 Baclofen 5 mg PO BID PRN 01/28/24 Gabapentin [Neurontin] 400 mg PO DAILY 01/28/24 Losartan Potassium 100 mg PO DAILY 01/28/24 Meloxicam 15 mg PO DAILY 01/28/24 Omeprazole 20 mg PO DAILY 01/28/24 traMADol [Ultram] 50 mg PO DAILY 01/28/24 Active Medications Atropine Sulfate (Atropine Abboject 1 Mg/10 Ml Syringe) 0.5 mg IVP Q5M PRN PRN Reason: Bradycardia Stop: 02/06/24 06:27 Ephedrine Sulfate (Ephedrine 50 Mg/Ml Vial) 10 mg IVP Q5M PRN PRN Reason: HYPOTENSION Stop: 02/06/24 06:27 Fentanyl (Fentanyl 100 Mcg/2 Ml Vial) 25 - 50 mcg IVP Q5M PRN PRN Reason: BREAKTHROUGH PAIN (2nd Choice) Stop: 02/06/24 06:27 Hydromorphone HCl (Hydromorphone 0.5 Mg/0.5 Ml Syringe) 0.2 - 0.6 mg IVP Q5M PRN PRN Reason: PAIN (First Choice) Stop: 02/06/24 06:27 Lactated Ringer's (Lr) 1,000 mls @ 100 mls/hr IV .Q10H FRIDA Stop: 02/05/24 16:59 Morphine Sulfate (Morphine 2 Mg/Ml Carpuject) 2 - 4 mg IVP Q5M PRN PRN Reason: PAIN (3rd Choice) Stop: 02/06/24 06:27 Naloxone HCl (Naloxone 0.4 Mg/Ml Vial) 0.1 mg IVP Q2M PRN PRN Reason: RESP RATE <8 Stop: 02/06/24 06:27 Ondansetron HCl (Ondansetron 4 Mg/2 Ml Vial) 4 mg IVP ONCE PRN PRN Reason: N/V (First Choice) Stop: 02/06/24 06:27 Cholecalciferol (Vitamin D3) [Vitamin D3] 1 cap PO DAILY 11/02/14 amLODIPine [Norvasc] 5 mg PO DAILY 02/16/21 traZODone [Desyrel] 50 mg PO HS 02/16/21 Alendronate [Fosamax] 70 mg PO OAW 01/28/24 Atorvastatin [Lipitor] 20 mg PO DAILY 01/28/24 Baclofen 5 mg PO BID PRN 01/28/24 Gabapentin [Neurontin] 400 mg PO DAILY 01/28/24 Losartan Potassium 100 mg PO DAILY 01/28/24 Meloxicam 15 mg PO DAILY 01/28/24 Omeprazole 20 mg PO DAILY 01/28/24 traMADol [Ultram] 50 mg PO DAILY 01/28/24 Allergies/Adverse Reactions: Allergies Allergy/AdvReac Type Severity Reaction Status Date / Time Penicillins Allergy Intermediate Edema Verified 02/22/21 08:30 Anes History & Medical History - Medical History Cardiovascular: reports: Hypertension, High cholesterol Pulmonary: reports: None Gastrointestinal: reports: GERD Urinary: reports: Kidney stones Musculoskeletal: reports: Osteoarthritis Endocrine/Autoimmune: reports: None Blood Disorders: reports: Anemia Skin: reports: None Smoking Status: Never smoker - Surgical History General: reports: Cholecystectomy Gynecologic: reports: section Neurologic: reports: Craniotomy Orthopedic: reports: Rotator cuff repair, Other Exam Dental: WNL Mouth Openin Fingerbreadth Mallampati classification: II Thyromental Distance: 4-6 cm Plan Anesthesia Type: Spinal, Fascia Iliaca Block Consent for Procedure(s) Verified and Reviewed: Yes Code Status: Attempt Resuscitation ASA classification: 2-Mild systemic disease Is this case an emergency?: No
[2024-02-05] MEDS ORDERED: PHENYLEPHRINE HCL 0.5 MG/5 ML AMPULE ONE ×2 (09:22→09:50)
[2024-02-05] MEDS ORDERED: ePHEDrine 50 MG/ML VIAL IVP ONE ×2 (09:28→10:22)
[2024-02-05] MEDS ORDERED: TRANEXAMIC ACID 1,000 MG/10 ML VIAL ONE (09:30)
[2024-02-05] MEDS ORDERED: ROPIVACAINE 0.5% PF 20 ML VIAL ONE (09:51)
[2024-02-05] MEDS: VANCOMYCIN 1 GM VIAL MC ONE (10:31)
--- NOTE | 2024-02-05 12:28 | OPERATIVE REPORT ---
Operative Report - General Procedure Date: 02/05/24 Planned Procedure: Right total hip arthroplasty Pre-Op Diagnosis: Osteoarthritis right hip Procedure Performed: Right total hip arthroplasty: Mathias [employer] Nephew total hip system with press-fit 48 mm R3 3-hole acetabular liner, 6.5 X 25 mm length acetabular screw, neutral acetabular polyethylene liner, 32 , -3mm head Oxinium and noncemented #2 collared lateral offset femoral stem Post Op Diagnosis: Same as preoperative diagnosis - Procedure Note Primary Surgeon: Miguel Rees MD Secondary Surgeon: Nicole Mitchell PAC Anesthesia Provider: Harper Burrell CRNA Anesthesia Technique: Spinal Estimated Blood Loss (mL): 150 Indications: This is a 68-year-old woman with chronic progressive pain right hip and groin for past 8 years. She has been using walker for the past 4 years. She has limited to her activities primarily to her house and indoors. She avoids outdoors because of weightbearing pain to right hip. She has had 3 previous cortisone injections the last one was in September 2023. 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 Her exam showed painful, limited motion with positive FADIR and Stinchfield test reproducing her pain. Her x-ray showed marked narrowing of the hip joint with osteophyte. Informed consent obtained for right hip replacement prior to surgery. Findings: The femoral head had denuded bone from loss of articular cartilage and so to the acetabulum. Complete thickness articular cartilage loss involving most of the femoral head and acetabulum. Complications: Intraoperative fracture greater trochanter, repaired - Other Other Information/Narrative: After satisfactory spinal anesthesia had been achieved, the patient was placed in a lateral decubitus position with the right hip facing superiorly. The patient was secured in the lateral decubitus position using a pegboard with 2 post securing the torso and 2 posts securing the pelvis. The right hip and right lower extremity were prepped and draped in a sterile manner in the usual fashion. A timeout procedure was performed by the entire operating room team and all were in agreement. A longitudinal incision was made about the lateral right hip beginning at the vastus lateralis ridge of the proximal femur and extending it proximally approximately 3 fingerbreadths above the trochanter. The subcutaneous tissue and fascia lisa were split in line with the incision. The anterior one third of the gluteus medius was incised at the myotendinous junction. The gluteus medius was retracted medially. The hip capsule was exposed and was split in a T-shaped fashion. Part of the anterior hip capsule was excised. The femoral head was dislocated with flexion, adduction and external rotation. An osteotomy was done to the femoral neck using a osteotomy guide. Retractors were placed behind the femoral neck to protect the soft tissues from the oscillating saw. The proximal femur was retracted. 2 acetabular retractors were placed one anteriorly directly against bone to reduce any soft tissue impingement to femoral nerve. The second retractor was placed more posteriorly directly against bone and preventing any impingement against sciatic nerve. The acetabulum was prepared with a large curette. Medialization of the acetabulum was performed with a small acetabular reamer and then widening was done up to a 47 mm reamer the final reamers were placed in approximately 20 degrees anteversion and 40 degrees of abduction. A trial acetabular component was inserted, 47 mm and this fit well. A permanent 48 mm R3 acetabular 3-hole component was then impacted in 40 degrees of abduction and approximately 20 degrees of anteversion. This had good fixation to push pull and rotation. A single 25 mm superior acetabular screw was inserted. The stability of the acetabular cup was very good. A trial acetabular liner was inserted into the cup. The femoral canal was opened with a box osteotome, starting reamer and then a short broach. Broaching was carried out to a #2. Calcar reaming was performed. Good fit and stability to the #2 stem was achieved. Trial reduction was performed. Hip motion was very good and the hip was stable to dislocation maneuvers. The trial components were removed. After the trial components were removed, the femur was retracted posteriorly and a intraoperative fracture of the greater trochanter occurred. The calcar was intact. This was repaired with a Mathias [employer] Nephew 2.0 mm stainless steel cerclage band and tightened to approximately 70 kg. In addition #2 Arthrex FiberWire was used to repair the trochanter bone to bone and tendon to tendon to provide a secure repair. Double #2 Arthrex FiberWire was utilized for prior to the repair A permanent acetabular liner was impacted into the acetabular cup. The #2 polar, -3 , 32mm head with lateral offset femoral stem was impacted and fully seated. The femoral head was impacted on the femoral trunnion. There was good stability to push pull and rotation. A 32 mm -3mm head was impacted on the trunnion. The hip was reduced, had good leg length tension and good stability with dislocation maneuvers. 3- minute lavage with dilute Betadine was performed. The hip abductors were repaired at the myotendinous junction with #1 stratofix. The fascia lisa was closed with #1 stratofix. The subcutaneous tissue was closed with 2-0 stratofix. The skin was closed with a 3-0 stratofix subcuticular closure and Dermabond. The patient tolerated the procedure well. A physician pharmacy assistant was utilized during the procedure to provide retraction and protection of neurovascular structures as well as to facilitate dislocation and reduction of the hip joint.
[2024-02-05] MEDS ORDERED: SODIUM CHLORIDE FLUSH 0.9% 10 ML SYRINGE IVP PRN (12:52)
[2024-02-05] MEDS ORDERED: DOCUSATE SODIUM 100 MG CAPSULE PO PRN (12:52)
[2024-02-05] MEDS ORDERED: fentaNYL 100 MCG/2 ML VIAL IVP PRN (13:21)
--- NOTE | 2024-02-05 13:31 | ANESTHESIA POST OP EVALUATION ---
Anesthesia Post Eval - Post Anesthesia Eval Vitals: Last Vital Signs Temp 36.4 C L 02/05/24 13:05 Pulse 101 H 02/05/24 13:20 Resp 21 02/05/24 13:20 BP 115/76 02/05/24 13:20 Pulse Ox 99 02/05/24 13:20 O2 Flow Rate CV Function Including HR & BP: Stable Pain Control: Satisfactory Nausea & Vomiting: Negative Mental Status: Baseline Respiratory Status: Airway Patent Hydration Status: Satisfactory Anesthesia Complications: None
[2024-02-05] MEDS: ACETAMINOPHEN 500 MG TABLET PO SCH (13:48)
[2024-02-05] MEDS: ceFAZolin (2G) 2 GM in SODIUM CHLORIDE 0.9% MINIBAG 100 ML IV SCH (13:48)
[2024-02-05] MEDS: NS W/20 MEQ KCL 1,000 ML IV SCH (13:52)
[2024-02-05] MEDS: traMADol 50 MG TABLET PO PRN (14:14)
--- NOTE | 2024-02-05 14:14 | XRAY Report ---
PROCEDURE: Pelvis 1-2V INDICATIONS: postop hip arthroplasty TECHNIQUE: 2 view(s) of the pelvis acquired. COMPARISON: Xray hip 11/07/2023, CT abdomen pelvis 04/05/2019 FINDINGS: Postsurgical changes reflecting right hip arthroplasty. There is good anatomic alignment and hardware is intact. Postsurgical soft tissue changes are present. Ossification is noted overlying the pelvis unchanged and suspected to be related to uterine fibroid. IMPRESSION: Postoperative right hip arthroplasty. Reviewed by: Christine Freitas MD on 02/05/2024 2:12 PM PDT Approved by: Christine Freitas MD on 02/05/2024 2:12 PM PDT Station ID: [id number]
[2024-02-05] MEDS: oxyCODONE 5 MG TABLET PO PRN (16:20)
[2024-02-05] MEDS: SODIUM CHLORIDE FLUSH 0.9% 10 ML SYRINGE IVP SCH (16:21)
[2024-02-05] MEDS: PHENYLEPHRINE 20 MG in SODIUM CHLORIDE 0.9% 248 ML IV ONE (19:24)
[2024-02-05] MEDS: traZODone 50 MG TABLET PO SCH (20:08)
[2024-02-05] MEDS: ethyl alcohoL 62% SWAB AMPULE NAS SCH (20:08)
[2024-02-05] MEDS: CELECOXIB 100 MG CAPSULE PO SCH (20:08)
[2024-02-05] MEDS: BACLOFEN 10 MG TABLET PO PRN (20:09)
[2024-02-05] MEDS: GABAPENTIN 400 MG CAPSULE PO SCH (20:10)
[2024-02-05] MEDS: ONDANSETRON 4 MG/2 ML VIAL IVP PRN (20:12)
[2024-02-06 06:18] LABS: BASOPHILS % (AUTO) 0.1 %; HCT - HEMATOCRIT 25.9 % (37.0-47.0); HGB - HEMOGLOBIN 8.3 g/dL (12.0-16.0); LYMPHOCYTES # (AUTO) 0.8 10^3/uL (1.5-3.5); LYMPHOCYTES % (AUTO) 8.2 %; MEAN CORPUSCULAR HEMOGLOBIN 30.6 pg (27.0-31.0); MEAN CORPUSCULAR VOLUME 95.6 fL (81.0-99.0); MEAN PLATELET VOLUME 10.1 fL (7.9-10.8); MONOCYTES # (AUTO) 0.8 10^3/uL (0.0-1.0); MONOCYTES % (AUTO) 8.2 %; NEUTROPHILS % (AUTO) 83.3 %; PLT - PLATELET COUNT 162 10^3/uL (130-450); RED BLOOD COUNT 2.71 10^6/uL (4.20-5.40); RED CELL DISTRIBUTION WIDTH 13.8 % (12.0-15.0); WHITE BLOOD COUNT 9.6 x10^3/uL (4.8-10.8)
[2024-02-06] MEDS: dexAMETHasone 4 MG TABLET PO SCH (06:35)
[2024-02-06] MEDS: PANTOPRAZOLE 40 MG TABLET PO SCH (06:35)
[2024-02-06] MEDS: polyethylene glycoL 3350 17 GM PACKET PO SCH (08:22)
[2024-02-06] MEDS: CHOLECALCIFEROL 25 MCG TABLET PO SCH (08:22)
[2024-02-06] MEDS: ASPIRIN EC 81 MG TABLET PO SCH (08:22)
[2024-02-06 08:40] VITALS: O2SAT 97
--- NOTE | 2024-02-06 11:26 | PROVIDER PROGRESS NOTE ---
Subjective - General Procedure Date: 02/05/24 Post Op Days: 1 - Review of Systems Wound/Incisions: positive: Healing well Pulmonary: positive: No symptoms Cardiovascular: positive: No symptoms Genitourinary: positive: No symptoms Psychiatric: positive: No symptoms - Other Other Information/Narrative: This is a 68-year-old woman who had a right hip replacement performed yesterday. She is up in a chair alert and oriented and in good spirits. She denies fever or chills, nausea or vomiting, no chest pain or shortness of breath. Her pain is under satisfactory control with medication. She notes some numbness to the anterior thigh, right side. Objective - Patient Data Vital Signs: Vital Signs x48h Temp Pulse Resp BP Pulse Ox 02/06/24 08:30 36.7 C 101 H 18 121/74 97 02/06/24 05:00 36.6 C 91 16 108/65 100 Weight: Weight 02/04/24 02/05/24 02/06/24 23:59 23:59 23:59 Weight (kg) 61 kg Intake & Output: Intake and Output Totals x24h 02/04/24 02/05/24 02/06/24 23:59 23:59 23:59 Intake Total 943 2281 Output Total 150 Balance 793 2281 - Lab Results Lab Results: 02/06/24 05:45 Other Lab Results: Lab Results x24hrs 02/06/24 Range/Units 05:45 WBC 9.6 (4.8-10.8) x10^3/uL RBC 2.71 L (4.20-5.40) 10^6/uL Hgb 8.3 L (12.0-16.0) g/dL Hct 25.9 L (37.0-47.0) % MCV 95.6 (81.0-99.0) fL MCH 30.6 (27.0-31.0) pg MCHC 32.0 (32.0-36.0) g/dL RDW 13.8 (12.0-15.0) % Plt Count 162 (130-450) 10^3/uL MPV 10.1 (7.9-10.8) fL Neut # (Auto) 8.0 H (1.5-6.6) 10^3/uL Lymph # (Auto) 0.8 L (1.5-3.5) 10^3/uL Traill # (Auto) 0.8 (0.0-1.0) 10^3/uL Eos # (Auto) 0.0 (0.0-0.7) 10^3/uL Baso # (Auto) 0.0 (0.0-0.1) 10^3/uL Absolute Nucleated RBC 0.00 x10^3/uL Nucleated RBC % 0.0 /100WBC - Current Medications Current Medications: Current Medications Generic Name Dose Route Start Last Admin Trade Name Freq PRN Reason Stop Dose Admin Acetaminophen 1,000 mg 02/05/24 13:00 02/06/24 07:51 Acetaminophen 500 Mg Tablet PO 1,000 mg Q6H FRIDA Administration Alcohol 1 amp 02/05/24 21:00 02/06/24 08:22 Ethyl Alcohol 62% Swab Ampule ROXI 1 amp BID FRIDA Administration Aspirin 81 mg 02/06/24 09:00 02/06/24 08:22 Aspirin Ec 81 Mg Tablet PO 81 mg BID FRIDA Administration Baclofen 5 mg 02/05/24 13:22 02/05/24 20:09 Baclofen 10 Mg Tablet PO 5 mg BID PRN Administration Spasms Celecoxib 200 mg 02/05/24 21:00 02/06/24 08:22 Celecoxib 100 Mg Capsule PO 200 mg BID FRIDA Administration Cholecalciferol 50 mcg 02/06/24 09:00 02/06/24 08:22 Cholecalciferol 25 Mcg Tablet PO 50 mcg DAILY FRIDA Administration Dexamethasone 10 mg 02/06/24 07:00 02/06/24 06:35 Dexamethasone 4 Mg Tablet PO 02/06/24 12:00 10 mg ONCE FRIDA Administration Gabapentin 400 mg 02/05/24 21:00 02/06/24 08:22 Gabapentin 400 Mg Capsule PO 400 mg BID FRIDA Administration Potassium Chloride/Sodium Chloride 1,000 mls @ 90 mls/hr 02/05/24 13:00 02/06/24 08:30 Normal Saline 0.9% W/20 Meq Kcl IV Infused .Q11H7M FRIDA Infusion Ondansetron HCl 4 mg 02/05/24 12:52 02/05/24 20:12 Ondansetron 4 Mg/2 Ml Vial IVP 4 mg Q6HR PRN Administration Nausea / Vomiting Oxycodone HCl 5 mg 02/05/24 12:52 02/06/24 07:51 Oxycodone 5 Mg Tablet PO 5 mg Q6HR PRN Administration Severe Breakthrough pain(8-10) Pantoprazole Sodium 40 mg 02/06/24 07:00 02/06/24 06:35 Pantoprazole 40 Mg Tablet PO 40 mg QDAC FRIDA Administration Polyethylene Glycol 17 gm 02/06/24 09:00 02/06/24 08:22 Polyethylene Glycol 3350 17 Gm Packet PO 17 gm DAILY FRIDA Administration Sodium Chloride 10 ml 02/05/24 17:00 02/06/24 08:22 Sodium Chloride Flush 0.9% 10 Ml Syringe IVP 10 ml 0100,0900,1700 FRIDA Administration Tramadol HCl 50 mg 02/05/24 12:52 02/05/24 21:29 Tramadol 50 Mg Tablet PO 50 mg Q6HR PRN Administration Severe Breakthrough pain(8-10) Trazodone HCl 50 mg 02/05/24 21:00 02/05/24 20:08 Trazodone 50 Mg Tablet PO 50 mg HS FRIDA Administration - Physical Exam Wound/Incisions: positive: Dressing dry and intact, No drainage General Appearance: positive: No acute distress (Patient it is she does not have loosening of screw consistent) Respiratory: positive: No respiratory distress Neurologic/Psychiatric: positive: Oriented x3, Motor nml, Sensation nml Comments/Other: She is sitting comfortably. Dressing is dry and intact. Neurovascular is intact to right leg including sciatic and femoral nerve functions. She has been up with physical therapy and has met her physical therapy and occupational therapy goals. Impression/Plan - Problem List Problem List: Status post right total hip arthroplasty The patient has met discharge criteria for home. Physical Occupational Therapy recommend home health physical therapy. Her postop instructions have been documented in the joint camp book that was given and discussed preoperatively and additional today. She is return to the office next Saturday for postop follow-up. She is to ambulate with her walker, weightbearing as tolerated, avoid crossing her legs. She can resume home medications. Her specific medications for her surgery would include her pain medications as well as aspirin 81 mg twice daily for 6 weeks for deep venous thrombosis prophylaxis. She can resume her normal diet
[2024-02-06 12:29] VITALS: BP 126/66
== END 2024-02-06 12:55 | disposition home or self-care (01) ==
LOC: SDS 07:30 → MS2 13:09 → SDS 02-06 12:55
PROVIDERS: ATTEND Orthopaedic Surgery
DX: Z12.11 Encounter for screening for malignant neoplasm of colon (principal); M16.11 Unilateral primary osteoarthritis, right hip; D50.9 Iron deficiency anemia, unspecified; I10 Essential (primary) hypertension; Z87.820 Personal history of traumatic brain injury
CPT/HCPCS: 27130; 36415; 72170; 85025; 97116; 97162; 97166; 97530; 97535; A9270; C1713; C1776; J2372; J2795; J3370; J7120; J8540

== ENCOUNTER 2024-02-07 13:55 | Outpatient (CLI) | payer MEDICARE | END 2024-02-07 23:59 | disposition EMS.NT | LOC: EMS 13:55 | DX: M79.604 Pain in right leg (principal); M54.50 Low back pain, unspecified; F41.9 Anxiety disorder, unspecified ==

== ENCOUNTER 2024-02-17 20:49 | Emergency (ER) | payer MEDICARE ==
[2024-02-17 21:09] VITALS: O2SAT 99
[2024-02-17] MEDS: oxyCODONE 5 MG TABLET PO STA (21:23)
[2024-02-17 21:43] LABS: ALBUMIN 3.7 g/dL (3.2-5.5); ALBUMIN/GLOBULIN RATIO 1.4 (1.0-2.2); BILIRUBIN,TOTAL 0.5 mg/dL (0.2-1.0); CALCIUM 9.1 mg/dL (8.5-10.3); CREATININE 0.5 mg/dL (0.6-1.3); MAGNESIUM 1.9 mg/dL (1.7-2.3); POTASSIUM 3.5 mmol/L (3.5-4.5); TOTAL PROTEIN 6.3 g/dL (6.4-8.9)
--- NOTE | 2024-02-17 21:49 | ED Physician Documentation ---
PD HPI LOWER EXT INJURY - Stated complaint Stated Complaint: R LEG PX - Chief complaint Chief Complaint: Ext Problem - History obtained from History obtained from: Patient - Additional information Additional information: Patient is a 68-year-old female presenting for evaluation of right leg swelling and pain which has been worsening for the past several days. Patient is recently postop from a right hip replacement 02/05/24. She is had ongoing issues with spasms in the leg even before her surgery and has been on baclofen for this. However the spasms and pain have been worse over the past day. She was seen this morning by PCP with an outpatient ultrasound ordered and she was on the way to the hospital when the spasms were becoming worse. She was taking oxycodone after the surgery but is running low on those so has only taken a tramadol today. She is scheduled to see Dr. Rees tomorrow for follow-up. Denies fever. Denies abnormal drainage from her incision. Does not currently take a blood thinner. 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 - Present Medications Home Medications: Ambulatory Orders Medication Instructions Recorded Confirmed Cholecalciferol (Vitamin D3) 1 cap PO DAILY 11/02/14 01/28/24 [Vitamin D3] amLODIPine [Norvasc] 5 mg PO DAILY 02/16/21 01/28/24 traZODone [Desyrel] 50 mg PO HS 02/16/21 01/28/24 Alendronate [Fosamax] 70 mg PO OAW 01/28/24 01/28/24 Atorvastatin [Lipitor] 20 mg PO DAILY 01/28/24 01/28/24 Baclofen 5 mg PO BID PRN 01/28/24 01/28/24 Gabapentin [Neurontin] 400 mg PO DAILY 01/28/24 01/28/24 Losartan Potassium 100 mg PO DAILY 01/28/24 01/28/24 Meloxicam 15 mg PO DAILY 01/28/24 02/05/24 Omeprazole 20 mg PO DAILY 01/28/24 01/28/24 traMADol [Ultram] 50 mg PO DAILY 01/28/24 01/28/24 - Allergies Allergies/Adverse Reactions: Allergies Allergy/AdvReac Type Severity Reaction Status Date / Time Penicillins Allergy Intermediate Edema Verified 02/22/21 08:30 pneumococcal vaccine Allergy Hives Verified 02/17/24 21:07 - Social History Does the pt smoke?: No Smoking Status: Never smoker Does the pt drink ETOH?: No Does the pt have substance abuse?: No - Immunizations Immunizations are current?: Yes - POLST Patient has POLST: No PD ED PE NORMAL - General General: Alert and oriented X 3, No acute distress, Well developed/nourished - HEENT HEENT: Atraumatic - Neck Neck: Supple, no meningeal sign - Cardiac Cardiac: RRR, Strong equal pulses - Respiratory Respiratory: No respiratory distress - Derm Derm: Other (Right lower extremity swelling, dressing to right hip appears clean and dry, Good range of motion at the right knee) Results - Vitals Vitals: Vital Signs - 24 hr 02/17/24 02/17/24 21:01 22:32 Temperature 37.3 C 37.0 C Heart Rate 105 H 88 Respiratory 18 18 Rate Blood Pressure 137/69 H 130/60 O2 Saturation 99 99 Oxygen O2 Source Room air - Labs Labs: Laboratory Tests 02/17/24 21:23 Sodium 139 Potassium 3.5 Chloride 104 Carbon Dioxide 28 Anion Gap 7.0 BUN 12 Creatinine 0.5 L Estimated GFR (MDRD) 123 Glucose 124 H Calcium 9.1 Magnesium 1.9 Total Bilirubin 0.5 AST 18 ALT 20 Alkaline Phosphatase 71 Total Protein 6.3 L Albumin 3.7 Globulin 2.6 Albumin/Globulin Ratio 1.4 PD Medical Decision Making - ED course Complexity details: reviewed results, re-evaluated patient, d/w patient ED course: Patient is a 68-year-old recently few weeks postop from right hip replacement now with right lower extremity swelling and pain. No signs of infection and incision appears well. Ultrasound was obtained and limited but no findings of DVT. Chemistries were obtained as patient is complaining of muscle spasms with no signs of electrolyte issues. She is feeling better with oxycodone. She is agreeable to trial of Flexeril tonight. She is scheduled to see Dr. Rees for regular follow-up appointment tomorrow. She is ambulatory here with a walker. Departure - Departure Disposition: 01 Home, Self Care Clinical Impression: Swelling of right lower extremity, Muscle spasm of right leg Condition: Stable Instructions: ED Leg Swelling Unilateral Follow-Up: Miguel Rees MD [Provider Admit Priv/Credential] - Tomorrow Comments: Your ultrasound today does not show clear signs of a DVT but there was significant swelling which did limit the evaluation. I would recommend another ultrasound in a week to reassess to make sure there is no swelling. I would also recommend keeping your appointment with your orthopedic surgeon tomorrow.I have sent you home with a different muscle relaxer called cyclobenzaprine tonight to see if this helps better with your muscle spasms. Return to the ER if you develop any worsening symptoms. Forms: PCP List Discharge Date/Time: 02/17/24 22:32
[2024-02-17] MEDS: CYCLOBENZAPRINE 10 MG Prepack 2 PO PRN (22:20)
--- NOTE | 2024-02-17 22:27 | Ultrasound Report ---
PROCEDURE: Duplex Ext Veins Right INDICATIONS: swelling/pain TECHNIQUE: Real-time imaging, as well as color and pulse Doppler interrogation, were performed of the lower extr emity deep veins from the inguinal ligament to the popliteal fossa. Attempted visualization of the ca lf veins was performed. COMPARISON: None. FINDINGS: The visualized deep veins are normally compressible, and free of intraluminal thrombus. C olor and pulse Doppler demonstrate normal phasic intraluminal flow. There is normal augmentation res ponse to distal compression maneuver. The popliteal vein and calf veins were not well seen. There is diffuse edema. IMPRESSION: No deep venous thrombosis of the visualized lower extremity. The popliteal vein and calf veins were n ot well seen. There is diffuse edema. Reviewed by: Dandy Fry MD on 02/17/2024 10:26 PM PDT Approved by: Dandy Fry MD on 02/17/2024 10:26 PM PDT Station ID: [id number]
[2024-02-17 22:33] VITALS: BP 130/60
== END 2024-02-17 22:32 | disposition home or self-care (01) ==
LOC: ED 20:49
DX: M79.89 Other specified soft tissue disorders (principal); M62.838 Other muscle spasm; I10 Essential (primary) hypertension; E78.00 Pure hypercholesterolemia, unspecified; Z79.899 Other long term (current) drug therapy
CPT/HCPCS: 36415; 80053; 83735; 93971; 99283; 99284; A9270

== ENCOUNTER 2024-02-28 19:27 | Emergency (ER) | payer MEDICARE ==
[2024-02-28 19:52] VITALS: O2SAT 100
[2024-02-28] MEDS: oxyCODONE 5 MG TABLET PO STA (20:28)
--- NOTE | 2024-02-28 20:43 | ED Physician Documentation ---
History of Present Illness - Stated complaint Stated Complaint: RT FOOT PX - Chief complaint Chief Complaint: Ext Problem - History obtained from History obtained from: Patient, Friend - Additonal information Additional information: She is always had leg spasms to some extent. After recent total hip replacement they got much worse and are not tolerable now. She cannot sleep. They are happening all the time. She is already had an ultrasound to rule out DVT. And has tried magnesium supplementation without relief. The main thing now is it is making her panicky. 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 - Present Medications Home Medications: Ambulatory Orders Medication Instructions Recorded Confirmed Cholecalciferol (Vitamin D3) 1 cap PO DAILY 11/02/14 02/28/24 [Vitamin D3] amLODIPine [Norvasc] 5 mg PO DAILY 02/16/21 02/28/24 traZODone [Desyrel] 50 mg PO HS 02/16/21 02/28/24 Alendronate [Fosamax] 70 mg PO OAW 01/28/24 02/28/24 Atorvastatin [Lipitor] 20 mg PO DAILY 01/28/24 02/28/24 Baclofen 5 mg PO BID PRN 01/28/24 02/28/24 Gabapentin [Neurontin] 400 mg PO BID 01/28/24 02/28/24 Losartan Potassium 100 mg PO DAILY 01/28/24 02/28/24 traMADol [Ultram] 50 mg PO Q6HR PRN 01/28/24 02/28/24 Aspirin [Aspirin Regimen] 81 mg PO DAILY 02/28/24 02/28/24 Cyclobenzaprine [Flexeril] 10 mg PO TID PRN 02/28/24 02/28/24 LORazepam [Ativan] 1 mg PO TID PRN #12 tablet 02/28/24 Omeprazole 40 mg PO DAILY 02/28/24 02/28/24 Vitamin B Complex 1 each PO DAILY 02/28/24 02/28/24 - Allergies Allergies/Adverse Reactions: Allergies Allergy/AdvReac Type Severity Reaction Status Date / Time Penicillins Allergy Intermediate Edema Verified 02/28/24 19:42 pneumococcal vaccine Allergy Hives Verified 02/28/24 19:42 - Social History Does the pt smoke?: No Smoking Status: Never smoker Does the pt drink ETOH?: No Does the pt have substance abuse?: No - Immunizations Immunizations are current?: Yes - POLST Patient has POLST: No PD ED PE NORMAL - Vitals Vital signs reviewed: Yes - General General: Alert and oriented X 3, Other (She is panicky uncomfortable) - Derm Derm: Normal color, Warm and dry - Extremities Extremities: Other (Every couple of minutes she will scream and then dorsiflex her foot. There is no obvious tenderness in the area.) - Neuro Neuro: Alert and oriented X 3, Normal speech Results - Vitals Vitals: Vital Signs - 24 hr 02/28/24 19:42 Temperature 36.5 C Heart Rate 100 Respiratory 16 Rate Blood Pressure 133/70 H O2 Saturation 100 Oxygen O2 Source Room air PD Medical Decision Making - ED course ED course: She is already been ruled out for DVT and had electrolytes done which were really unremarkable. Patient friend really thinking she needs more something for anxiety and was administered lorazepam. Departure - Departure Disposition: 01 Home, Self Care Clinical Impression: Pain in upper limb Condition: Good Record reviewed to determine appropriate education?: Yes Instructions: ED Muscle Pain Leg Cramps Prescriptions: LORazepam [Ativan] 1 mg PO TID PRN #12 tablet PRN Reason: Anxiety Comments: I sent your prescription electronically to the [facility] in [place]. Do not drink or drive while taking lorazepam. Call your doctor to arrange a follow-up appointment, make the next available appointment. In the interim, return anytime if worse or if new symptoms develop. My instructions
[2024-02-28] MEDS: LORazepam 2 MG/ML VIAL IM STA (21:05)
[2024-02-28 21:14] VITALS: BP 140/75
== END 2024-02-28 21:17 | disposition home or self-care (01) ==
LOC: ED 19:27
DX: M62.831 Muscle spasm of calf (principal); I10 Essential (primary) hypertension; E78.00 Pure hypercholesterolemia, unspecified; Z87.442 Personal history of urinary calculi; Z79.82 Long term (current) use of aspirin; Z79.899 Other long term (current) drug therapy
CPT/HCPCS: 96372; 99283; A9270; J2060

== ENCOUNTER 2024-03-06 12:47 | Emergency (ER) | payer MEDICARE ==
[2024-03-06 13:08] VITALS: O2SAT 100
--- NOTE | 2024-03-06 14:03 | ED Physician Documentation ---
History of Present Illness - Stated complaint Stated Complaint: R FOOT PX - Chief complaint Chief Complaint: Ext Problem - History obtained from History obtained from: Patient, Family - Additonal information Additional information: Patient is brought to the emergency department by her caregiver for chief complaint of right foot pain. The patient has been having spasms in her right foot ever since having a hip replacement surgery on the right about a month ago. The patient states that it keeps her up at night and she is just exhausted and frustrated from never being able to sleep. She denies any direct injury. Her caregiver states that the spasms seem to get worse when the patient is anxious. The patient is on tramadol and apparently they went to see the primary care physician this last week but caregiver states the appointment was not completed and no medications were prescribed that she knows of. She states they are trying to switch primary care physicians. 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 - Present Medications Home Medications: Ambulatory Orders Medication Instructions Recorded Confirmed Cholecalciferol (Vitamin D3) 1 cap PO DAILY 11/02/14 02/28/24 [Vitamin D3] amLODIPine [Norvasc] 5 mg PO DAILY 02/16/21 02/28/24 traZODone [Desyrel] 50 mg PO HS 02/16/21 02/28/24 Alendronate [Fosamax] 70 mg PO OAW 01/28/24 02/28/24 Atorvastatin [Lipitor] 20 mg PO DAILY 01/28/24 02/28/24 Baclofen 5 mg PO BID PRN 01/28/24 02/28/24 Gabapentin [Neurontin] 400 mg PO BID 01/28/24 02/28/24 Losartan Potassium 100 mg PO DAILY 01/28/24 02/28/24 traMADol [Ultram] 50 mg PO Q6HR PRN 01/28/24 02/28/24 Aspirin [Aspirin Regimen] 81 mg PO DAILY 02/28/24 02/28/24 Cyclobenzaprine [Flexeril] 10 mg PO TID PRN 02/28/24 02/28/24 LORazepam [Ativan] 1 mg PO TID PRN #12 tablet 02/28/24 Omeprazole 40 mg PO DAILY 02/28/24 02/28/24 Vitamin B Complex 1 each PO DAILY 02/28/24 02/28/24 Tramadol HCl 25 mg PO Q6H PRN #20 tab 03/06/24 diazePAM [Valium] 5 - 10 mg PO TID PRN #15 tablet 03/06/24 - Allergies Allergies/Adverse Reactions: Allergies Allergy/AdvReac Type Severity Reaction Status Date / Time Penicillins Allergy Intermediate Edema Verified 03/06/24 13:00 pneumococcal vaccine Allergy Hives Verified 03/06/24 13:00 - Social History Does the pt smoke?: No Smoking Status: Never smoker Does the pt drink ETOH?: No Does the pt have substance abuse?: No - Immunizations Immunizations are current?: Yes - POLST Patient has POLST: No PD ED PE NORMAL - Vitals Vital signs reviewed: Yes - General General: No acute distress, Well developed/nourished, Other - HEENT HEENT: Atraumatic, PERRL, EOMI, Moist mucous membranes - Neck Neck: Supple, no meningeal sign - Cardiac Cardiac: Strong equal pulses - Respiratory Respiratory: No respiratory distress - Derm Derm: Normal color, Warm and dry, No rash - Extremities Extremities: No deformity, No calf tenderness / cord, Other (Moderate edema bilateral feet. Intermittent jerking of right foot. No point tenderness on palpation. 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 The patient was treated symptomatically in the emergency department with tramadol and Valium which she is already on at home. I have discussed with the caregiver that I can provide a small prescription for symptomatic meds but that they are going to have to go through the patient's primary care physician. As it can take a long time to get established with a new PCP, I have suggested that the patient continue to see her old one until she can get an appointment with somebody new. I have also suggested following up with her orthopedist. Departure - Departure Disposition: 01 Home, Self Care Clinical Impression: Foot spasms Condition: Stable Instructions: ED Spasm Muscle Prescriptions: Tramadol HCl 25 mg PO Q6H PRN #20 tab PRN Reason: Pain >8 diazePAM [Valium] 5 - 10 mg PO TID PRN #15 tablet PRN Reason: Spasms Comments: You have been treated today for your foot spasms and anxiety. Some medication for the same has been electronically transmitted via prescription to the [facility] pharmacy in [place]. Please pick this up this afternoon. You will need to follow-up for your ongoing pain needs with primary care and your orthopedist. I would suggest continuing to see your primary care physician until you are close to your appointment with your new one.
[2024-03-06] MEDS: traMADol 50 MG TABLET PO STA (14:17)
[2024-03-06] MEDS: diazePAM 5 MG TABLET PO STA (14:18)
[2024-03-06 15:02] VITALS: BP 129/62
== END 2024-03-06 14:50 | disposition home or self-care (01) ==
LOC: ED 12:47
DX: M62.838 Other muscle spasm (principal); I10 Essential (primary) hypertension; E78.00 Pure hypercholesterolemia, unspecified; Z87.442 Personal history of urinary calculi; Z79.82 Long term (current) use of aspirin; Z79.899 Other long term (current) drug therapy
CPT/HCPCS: 99283; A9270

== ENCOUNTER 2024-03-15 16:44 | Outpatient (CLI) | payer MEDICARE | END 2024-03-15 16:45 | disposition home or self-care (01) | LOC: DI 16:44 | PROVIDERS: ATTEND Orthopaedic Surgery | DX: Z53.9 Procedure and treatment not carried out, unspecified reason (principal) ==

== ENCOUNTER 2024-03-15 16:56 | Outpatient (CLI) | payer MEDICARE ==
--- NOTE | 2024-03-15 18:01 | XRAY Report ---
PROCEDURE: Hip w/Pelvis 2-3V RT INDICATIONS: TOTAL HIP ARTHROPLASTY TECHNIQUE: 3 views of the hip were acquired. COMPARISON: X-ray hip 11/07/2023, 02/05/2024 FINDINGS: Bones: No fractures or dislocations. No suspicious bony lesions. Right hip arthroplasty. Hardware is intact without evidence of hardware fracture or periprosthetic lucency to suggest loosening. Mild to moderate degenerative changes are present within the left hip. Soft tissues: Calcifications are present overlying the mid pelvis likely related to fibroid. IMPRESSION: Stable appearance of right hip arthroplasty. Reviewed by: Christine Freitas MD on 03/15/2024 5:59 PM PDT Approved by: Christine Freitas MD on 03/15/2024 5:59 PM PDT Station ID: [id number]
== END 2024-03-15 16:57 | disposition home or self-care (01) ==
LOC: DI 16:56
PROVIDERS: ATTEND Orthopaedic Surgery
DX: Z96.641 Presence of right artificial hip joint (principal)

== ENCOUNTER 2024-03-20 16:53 | Outpatient (CLI) | payer MEDICARE ==
[2024-03-20 17:08] LABS: BASOPHILS % (AUTO) 0.4 %; EOSINOPHILS # (AUTO) 0.2 10^3/uL (0.0-0.7); EOSINOPHILS % (AUTO) 2.8 %; HCT - HEMATOCRIT 36.5 % (37.0-47.0); HGB - HEMOGLOBIN 10.9 g/dL (12.0-16.0); LYMPHOCYTES # (AUTO) 1.8 10^3/uL (1.5-3.5); LYMPHOCYTES % (AUTO) 24.5 %; MEAN CORPUSCULAR HEMOGLOBIN 28.2 pg (27.0-31.0); MEAN CORPUSCULAR HGB CONC 29.9 g/dL (32.0-36.0); MEAN CORPUSCULAR VOLUME 94.6 fL (81.0-99.0); MEAN PLATELET VOLUME 9.6 fL (7.9-10.8); MONOCYTES # (AUTO) 0.5 10^3/uL (0.0-1.0); MONOCYTES % (AUTO) 6.9 %; NEUTROPHILS # (AUTO) 4.7 10^3/uL (1.5-6.6); NEUTROPHILS % (AUTO) 65.1 %; PLT - PLATELET COUNT 233 10^3/uL (130-450); RED BLOOD COUNT 3.86 10^6/uL (4.20-5.40); RED CELL DISTRIBUTION WIDTH 15.1 % (12.0-15.0); WHITE BLOOD COUNT 7.2 x10^3/uL (4.8-10.8)
[2024-03-20 17:25] LABS: CALCIUM 9.5 mg/dL (8.5-10.3); CREATININE 0.5 mg/dL (0.6-1.3); POTASSIUM 3.7 mmol/L (3.5-4.5)
== END 2024-03-20 16:54 | disposition home or self-care (01) ==
LOC: LAB 16:53
PROVIDERS: ATTEND Physician Assistant Medical
DX: R60.0 Localized edema (principal)
CPT/HCPCS: 36415; 80048; 83880; 85025

== ENCOUNTER 2024-03-24 06:10 | Outpatient (CLI) | payer MEDICARE | END 2024-03-24 23:59 | disposition EMS.NT | LOC: EMS 06:10 | DX: Z03.89 Encounter for observation for other suspected diseases and conditions ruled out (principal) ==

== ENCOUNTER 2024-03-26 20:12 | Emergency (ER) | payer MEDICARE ==
[2024-03-26 20:56] VITALS: BP 136/79; O2SAT 99
--- NOTE | 2024-03-26 22:09 | ED Physician Documentation ---
History of Present Illness - Stated complaint Stated Complaint: RT FOOT MUSCLE SPASM - Chief complaint Chief Complaint: Ext Problem - History obtained from History obtained from: Patient - Additonal information Additional information: Patient is a 68-year-old female presenting to the emergency department with right leg cramping. Patient had hip arthroplasty performed in the middle of January. Patient notes persistent pain and cramping since then. Patient has been following with PCP and coming to emergency department for pain and muscle relaxer control. Patient notes she takes tramadol, Valium, Flexeril for pain and muscle control. PD PAST MEDICAL HISTORY - Past Medical History Past Medical History: Yes Cardiovascular: Hypertension, High cholesterol Respiratory: None Neuro: Other Endocrine/Autoimmune: None GI: GERD GERENTOLOGICAL PHYSIOTHERAPIST: None : Kidney stones HEENT: Chronic vision loss Psych: None Musculoskeletal: Osteoarthritis Derm: None - Past Surgical History Past Surgical History: Yes Ortho: Hip replacement, Rotator cuff repair, Other /GERENTOLOGICAL PHYSIOTHERAPIST: section - Present Medications Home Medications: Ambulatory Orders Medication Instructions Recorded Confirmed Cholecalciferol (Vitamin D3) 1 cap PO DAILY 11/02/14 03/06/24 [Vitamin D3] amLODIPine [Norvasc] 5 mg PO DAILY 02/16/21 03/06/24 traZODone [Desyrel] 50 mg PO HS 02/16/21 03/06/24 Alendronate [Fosamax] 70 mg PO OAW 01/28/24 03/06/24 Atorvastatin [Lipitor] 20 mg PO DAILY 01/28/24 03/06/24 Baclofen 10 mg PO TID 01/28/24 03/06/24 Gabapentin [Neurontin] 400 mg PO BID 01/28/24 03/06/24 Losartan Potassium 100 mg PO DAILY 01/28/24 03/06/24 traMADol [Ultram] 50 mg PO Q6HR PRN 01/28/24 03/06/24 Aspirin [Aspirin Regimen] 81 mg PO DAILY 02/28/24 03/06/24 LORazepam [Ativan] 1 mg PO TID PRN #12 tablet 02/28/24 03/06/24 Omeprazole 40 mg PO DAILY 02/28/24 03/06/24 Vitamin B Complex 1 each PO DAILY 02/28/24 03/06/24 Tramadol HCl 25 mg PO Q6H PRN #20 tab 03/06/24 diazePAM [Valium] 5 - 10 mg PO TID PRN #15 tablet 03/06/24 Cyclobenzaprine [Flexeril] 10 mg PO TID PRN #20 tablet 03/26/24 Diazepam [Valium] 2 mg PO DAILY PRN 5 Days #5 tablet 03/26/24 - Allergies Allergies/Adverse Reactions: Allergies Allergy/AdvReac Type Severity Reaction Status Date / Time Penicillins Allergy Intermediate Edema Verified 03/26/24 20:45 pneumococcal vaccine Allergy Hives Verified 03/26/24 20:45 - Social History Does the pt smoke?: No Smoking Status: Never smoker Does the pt drink ETOH?: No Does the pt have substance abuse?: No - Immunizations Immunizations are current?: Yes - POLST Patient has POLST: No PD ED PE NORMAL - General General: Alert and oriented X 3 - HEENT HEENT: Atraumatic - Neck Neck: Supple, no meningeal sign - Cardiac Cardiac: RRR, No gallop - Respiratory Respiratory: No respiratory distress, Clear bilaterally - Abdomen Abdomen: Normal bowel sounds - Derm Derm: Normal color, Warm and dry - Extremities Extremities: No deformity, Other (Right leg shows no cramping at this time compartments are soft pulses intact distally DP and PT pulses 2+. Sensation intact bilaterally. Minimal swelling at 1+ pitting edema but equal bilaterally no erythema and negative Homans' sign. ) - Neuro Neuro: Alert and oriented X 3 Eye Opening: Spontaneous Motor: Obeys Commands Verbal: Oriented GCS Score: 15 - Psych Psych: Other (Patient appears slightly anxious but in no acute distress able to answer questions without difficulty and provide history.) Results - Vitals Vitals: Vital Signs - 24 hr 03/26/24 20:39 Temperature 36.9 C Heart Rate 94 Respiratory 16 Rate Blood Pressure 136/79 H O2 Saturation 99 Oxygen O2 Source Room air PD Medical Decision Making - ED course Complexity details: reviewed old records, reviewed results ED course: Patient's physical exam does show some mild cramping to right leg. No significant swelling minimal pain and edema but this appears equal bilaterally and no significant erythema compartments are soft and pulses intact. Discussed with patient we will give short course of pain and muscle control here in emergency department but she needs to continue to follow-up with primary care doctor in outpatient setting despite her trying to switch her primary care doctors at this time. Instructed patient to return with any color changes worsening pain hard compartments discoloration to extremities or any other new or worsening symptoms. Patient agreeable with this plan will follow-up with PCP in outpatient setting. Departure - Departure Disposition: 01 Home, Self Care Clinical Impression: Cramps of right lower extremity, Muscle spasm of right leg Condition: Good Prescriptions: Cyclobenzaprine [Flexeril] 10 mg PO TID PRN #20 tablet PRN Reason: Spasms Diazepam [Valium] 2 mg PO DAILY PRN 5 Days #5 tablet PRN Reason: Analgesia Comments: You were seen here in the emergency department for your right leg pain and have started you on oral Flexeril and Valium for your cramping refilled your prescriptions and only gave a short course it appears you have been prescribed this multiple times in February you need to follow-up with the primary care doctor and tell them to follow-up with them for renewal of these prescriptions and re- evaluation. I am prescribing a short course of narcotic pain medication for you. These are potentially dangerous and addictive medications that should be used carefully. These medications may constipate you. Take an zthb-jvt-sykeamb stool softener (docusate) twice daily with plenty of water while taking these medications. If you go 24 hours without a bowel movement, take [id number] miralax, per package instructions. Do not drink or drive while taking these medications. If you received narcotic or sedating medications while in the emergency department, do not drive for 24 hours. Store this medication in a safe, secure place and out of reach of children. It is a violation of federal law to give or sell this medication to another person or to use in a manner other than prescribed. The ED will not refill narcotic prescriptions, including prescriptions lost or stolen. To dispose of unwanted medications: 1. [facility] provides a drop box for medication in pill form only (no liquids) 8:00 am to 4:30 p.m. Saturday-Saturday in the lobby of the [facility], [address] [place] [address]. Empty pills into ziplock bag before disposal. Call [phone] for information. 2.[employer] is a free service available to all [facility] residents. Go to [email or web address]://[email or web address]/locations/[email or web address]/ Note that many narcotic pain relievers also contain Tylenol/acetaminophen. Please ensure that your total dose of acetaminophen from all sources does not exceed 3 g (3000 mg) per day. Forms: PCP List Discharge Date/Time: 03/26/24 22:41
[2024-03-26] MEDS: traMADol 50 MG TABLET PO STA (22:37)
== END 2024-03-26 22:41 | disposition home or self-care (01) ==
LOC: ED 20:12
DX: R25.2 Cramp and spasm (principal); I10 Essential (primary) hypertension; E78.00 Pure hypercholesterolemia, unspecified; Z87.442 Personal history of urinary calculi; Z79.82 Long term (current) use of aspirin; Z79.899 Other long term (current) drug therapy
CPT/HCPCS: 99283; A9270

== ENCOUNTER 2024-05-12 13:47 | Outpatient (CLI) | payer MEDICARE ==
--- NOTE | 2024-05-12 16:00 | XRAY Report ---
Shoulder 2+V LT HISTORY: 68 years of age, LEFT SHOULDER PAIN TECHNIQUE: Shoulder 2+V LT COMPARISON: None. FINDINGS/IMPRESSION: Moderate degenerative changes of the acromioclavicular joint. Mild degenerative change of the glenohu meral joint. Multiple calcification about the greater tuberosity, representing hydroxyapatite deposit ion disease. No acute fracture or dislocation. Reviewed by: Macy Saab MD on 05/12/2024 3:58 PM PDT Approved by: Macy Saab MD on 05/12/2024 3:58 PM PDT Station ID: [id number]
== END 2024-05-12 13:48 | disposition home or self-care (01) ==
LOC: DI.N 13:47
PROVIDERS: ATTEND Internal Medicine
DX: M19.012 Primary osteoarthritis, left shoulder (principal); M11.012 Hydroxyapatite deposition disease, left shoulder